=== PATIENT | female | born 1960 | race Caucasian/White ===

== ENCOUNTER 2017-02-08 17:05 | Outpatient (CLI) | payer OTHER ==
--- NOTE | 2017-02-09 09:34 | Ultrasound Report ---
RENAL ULTRASOUND: 02/08/2017 CLINICAL INDICATION: Right renal lesion. COMPARISON: CT of 05/13/2015, ultrasound of 05/06/2010. TECHNIQUE: Real-time sonographic vascular imaging was performed by the facility operations manager through the kidney s utilizing both color-flow and Doppler spectral analysis. Multiple union representative static images wer e saved for review. FINDINGS: The right kidney measures 10.6 x 3.9 x 3.8 cm. A 2.1 cm simple cyst is present. The exophy tic mass arising from the lower pole of the right kidney has increased in size from previous CT, now measuring 2.8 x 2.6 x 2.1 cm. No hydronephrosis is present. The left kidney measures 9.7 x 5.1 x 5.0 cm, and appears unremarkable. Incidental note is made of splenomegaly. Prevoid, the bladder measures 9.0 x 6.1 x 5.7 cm. No focal bladder lesion is seen. No significant pos tvoid residual. IMPRESSION: INTERVAL INCREASE IN SIZE OF SOLID EXOPHYTIC LESION ARISING FROM THE LOWER POLE OF THE R IGHT KIDNEY, SUSPICIOUS FOR NEOPLASM. JOB #: [id number] EXT JOB #:[id number]
== END 2017-02-08 17:06 | disposition home or self-care (01) ==
LOC: DI 17:05
PROVIDERS: ATTEND Urology
DX: N28.9 Disorder of kidney and ureter, unspecified (principal)
CPT/HCPCS: 76770

== ENCOUNTER 2017-03-28 11:27 | Outpatient (CLI) | payer OTHER | END 2017-03-28 11:28 | disposition home or self-care (01) | LOC: LAB.F 11:27 | PROVIDERS: ATTEND Physician Assistant Medical | DX: Z51.81 Encounter for therapeutic drug level monitoring (principal) | CPT/HCPCS: 36415; 80053; 85025 ==

== ENCOUNTER 2017-06-02 08:00 | Outpatient (CLI) | payer OTHER ==
--- NOTE | 2017-06-03 13:52 | CONSULTATION NOTE ---
Palliative Care Consultation - Referral Referring Provider: Nicki López. PCP is Alayna Malik PA-C Time of Visit: 06/02/2017 8:00 Referral setting: Home (Seen in home setting due to taxing and considerable effort required to leave the home due to fatigue from significant R side hemiparesis s/p distant CVA.) - Information Sources Records reviewed: RN notes reviewed, Previous records reviewed History/Review of Systems obtained from: Patient, Family Exam limitations: Clinical condition (Significant expressive aphasia s/p CVA in 1999) - History of Present Illness Brief History of Present Illness: Thank you, Nicki López, for asking the palliative care consult service to be involved in the care of your patient. I am asked to provide support for symptom management and goals of care in the context of advancing polycythemia vera and myelofibrosis. This is a daniel 56-year-old woman with a known history of polycythemia vera and myelofibrosis on Jakafi. She also has R side hemiparesis and significant expressive aphasia secondary to a CVA in 1999. She had a nephrectomy in March 2017 for a benign kidney mass, and she was off Jakafi for about a month during the surgery. She and her had a recent consultation with Dr Love at [facility] for a second opinion. He reviewed options, including a clinical trial of pacritinib, or alternatively treatment with a form of interferon. She is not a candidate for bone marrow transplant. Her reported that Dr Love said her prognosis is about 40 months. At her previous consultation at the [facility] with Nicki López NP, she stated she was not interested in participating in the clinical trial and wanted to stop treatment. Today she did reiterate that she is not interested in participating in the trial or interferon chemotherapy. Her issues currently are pain and nausea and vomiting, associated with progressive enlargement of the spleen. She does report that ondansetron helps with the N/V. She currently takes it in the morning and at dinner time. She can wake up in the night with dry heaving. She can eat dinner as late as 9 or 10pm, but her reports that it is usually 2-3 hours after meals that she goes to bed. She often stays up very late. We did discuss experimenting having a small snack at least 20-30 minutes before bed, to see if that helps. She is not able to describe whether anything triggers or alleviates the vomiting, such as eating, or not eating. Likewise for the pain secondary to the splenomegaly, she does not know if anything triggers or alleviates it. She currently does not take any medications for the pain, and declined having any additional pain medications for now. To relieve the pain she adjusts her position. She denies bone pain. She denies weight loss. She also has increasing night sweats, realizes this is sequelae of myelofibrosis. She currently receives blood transfusions, and they have increased in frequency and recently shes had them every two weeks: 05/27/17, , 04/28/17, 04/01/17. Information obtained from patient, nursing staff, and prior EMR chart notes. Medical/Surgical History - Past Medical History Neuro: reports: CVA (occurred in 1999), Other (expressive aphasia s/p CVA) Musculoskeletal: reports: Hemiplegia (R side hemiparesis, contractures on RUE, s /p CVA) Derm: reports: Herpes zoster (a few years ago) Other Past Medical History: polycythemia rubra vera; myelofibrosis - Past Surgical History General: reports: Other (nephrectomy for benign tumor, Mar 2017) - Substance History Use: Uses substance without health or social issues: NONE Medications/Allergies - Medications Home Medications: Ambulatory Orders Medication Instructions Recorded Confirmed Calcium [Calcio Jaclyn] 500 mg PO DAILY 11/20/12 06/03/17 Cholecalciferol (Vitamin D3) 5,000 unit PO DAILY 11/20/12 06/03/17 [Vitamin D] Lamotrigine 200 mg PO BID 11/20/12 06/03/17 Multivitamin [Multi-Vitamin Daily] 2 each PO DAILY 11/20/12 06/03/17 Ondansetron [Zofran] 4 mg PO Q6H PRN 11/20/12 06/03/17 Simvastatin [Zocor] 5 mg PO DAILY 11/20/12 06/03/17 oxyCODONE [Roxicodone] 5 mg PO Q4-6H PRN 11/20/12 06/03/17 Ruxolitinib Phosphate [Jakafi] 7.5 mg PO BID 04/27/17 06/03/17 raNITIdine HCl [Ranitidine HCl] 150 mg PO BID #60 capsule 05/25/17 06/03/17 - Allergies Allergies/Adverse Reactions: Allergies Allergy/AdvReac Type Severity Reaction Status Date / Time No Known Drug Allergies Allergy Verified 11/20/12 10:25 Review of Systems - Constitutional Constitutional: reports: Fatigue, Night sweats (secondary to myelofibrosis), Weight stable (at baseline, around 150 lbs) - Cardiovascular Cardiovascular: denies: Chest pain, Edema - Respiratory Respiratory: reports: Other (given oxygen after hospitalization for nephrectomy ; continues to use it at night, 2 liters/hr) - Gastrointestinal Gastrointestinal: reports: Abdominal pain (Left side pain secondary to splenomegaly), Constipation, Nausea, Vomiting, Good appetite - Genitourinary Genitourinary: reports: Frequency. denies: Dysuria, Incontinence - Musculoskeletal Musculoskeletal: reports: Limited range of motion (on right side), Assistive devices (has a 4-footed cane, does not use it much at home) - Neurological Neurological: reports: Abnormal gait (R side hemiparesis), Slurred speech ( significant expressive aphasia) - Hematologic/Lymphatic Hematologic/Lymphatic: reports: Anemia, Other (polycythemia rubra vera; myelofibrosis, dx'd around 1999) Physical Exam - Vital Signs Temperature: 98.2 F Pulse Rate: 77 O2 Saturation: 97 Blood Pressure: 118/68 - Physical Exam General Appearance: positive: No acute distress, Alert Eyes Bilateral: positive: EOMI, No lid inflammation, Conjunctivae nml, No scleral icterus ENT: positive: No signs of dehydration Neck: positive: Thyroid nml, No JVD, Trachea midline Cardiovascular: positive: Regular rate & rhythm, No murmur, No gallop Respiratory: positive: Chest non-tender, No respiratory distress Abdomen: positive: Tenderness (left side/upper L side), Distended (splenomegaly) Skin: positive: Bruising Extremities: positive: No pedal edema Neurologic/Psychiatric: positive: Oriented x3, Sensation nml, Mood/affect nml, Slurred/abnml speech. negative: Motor nml Palliative Care - POLST Patient has POLST: No Pain: Location (abdomen, L side), Pattern (no discernible patter) Tiredness/Fatigue: Moderate (4-6) Drowsiness/Sedation: None Nausea: Moderate (4-6) Depression: Mild (1-3) Anxiety: Mild (1-3) Dyspnea: Mild (1-3) (uses oxygen at night, since the nephrectomy in March) Anorexia: None, Mild (1-3) Sleep: Variable sleep pattern Constipation: Yes, Managed Feelings of wellbeing/Perceived Quality of Life: Poor Performance Status: Current level of functioning: Ambulates without assistive devices around the house, but also uses a 4-legged cane outside. Virtually housebound shopping and trips cause extreme fatigue, also she worries about needing to use the bathroom. Able to perform her own ADLs, has occasional assistance with showers. Unable to do much housework or activities that require exertion. Palliative Care Performance Status: 60% - Palliative Care Discussion: Who is present: Patient, spouse Denys, myself. Surrogate decision maker: Denys Fitzgerald, home [phone]. Information preferences: Patient has significant expressive aphasia so communication is difficult. She does not speak on the phone, so appointments and any arrangements are done by her . Both the patient and her spouse have insight and understanding into her disease. She was diagnosed around the time she had her cardiovascular event, about 17 years ago. So they have been living with her serious health issues ( cancer, R side hemiparesis, significant experessive aphasia) for half of their life (theyve been 34 years). They have 5 children, and she home-schooled them. They are all adults now, the youngest of their five children is now 23 years old, but was about 5 years old at the time of her stroke and cancer diagnosis, so the had to assume more and more responsibility over the years: the sole breadwinner, managing the house and the shopping, and dealing with everything having to do with his wifes serious illness: doctors, specialists, scheduling, appointments, transfusions. Then last year he had a serious health issue of his own: a pulmonary embolism caused him to go into atrial fibrillation and he ended up having three cardioversions ( one emergent, two scheduled). He acknowledges it hasn't been easy, and that he could use some support in the care of his , and around the house and property. The patient has family (mother, brother, a niece and her family) at [place], but who have not been and are not currently very involved in her care or present very often. Of their 5 adult children, one is in the [place] area. Their youngest son is at the house currently, but normally is at school in [facility]. We discussed what is most concerning to the patient. Verbal communication is quite difficult for her, but she said that therapy between her and her was what concerned her most. Her interpreted this not as getting counseling/marriage therapy, but rather that they need to take more time to talk to each other. He realizes they dont talk as much as they should, for those reasons listed above: lack of time because of work, managing the house and the acreage, his and his wifes serious health issues. We also discussed having her think about her goals and priorities in the context of what they have learned from Dr Dos Santos of [facility] about her prognosis (40 months). I provided education on advanced planning, and left the 5 Wishes booklet with them, Hard Choices for [place] [employer], and the POLST form, which they have not seen before. They will think and talk about it, and we agreed to continue the discussion at my follow up visit. The patients is interested in getting help and information about care giving support, and would appreciate a consultation with the palliative care long term care social worker. He would also appreciate on-going palliative care oversight. Impression and Recommendations - Palliative Care Impression: This is a daniel 56-year-old woman with a known history of polycythemia vera and myelofibrosis on Jakafi, with increasing symptom burden of abdominal pain secondary to splenomegaly, nausea and vomiting, night sweats. She also has longstanding R side hemiparesis and significant expressive aphasia secondary to a CVA in 1999. Her is her main social and caregiver support while he works aircraft time clerk, and is at risk of acute care surgeon burnout. She and her would benefit from palliative care support and assistance around symptom management, social resources and support, advanced care planning, and clarifying goals of care in the context of a diagnosis of a terminal illness, and eventual transition to Hospice. Recommendations/Counseling Done: Nausea/vomiting: Some relief with ondansetron, and is also on ranitidine for acid suppression. Consider adding anticholinergic, or corticosteroid if no relief. Can also consider and discuss with patient and spouse cannabinoids as an alternative Abdominal pain: Patient currently controls it with repositioning, does not want to use pain medications. She has oxycodone available. Monitor for increase. Constipation: Advised her to stop docusate, use Miralax (or the [employer] equivalent) daily vs sporadically, titrating as needed (1/4 1 capful), and add Senna 8.6mg 1 tab PO daily. Getting this under control can help alleviate the N/ V too. Night sweats (hyperhidrosis): Wear loose cotton clothing, cotton bed linens, maintain adequate hydration. If it becomes really bothersome, consider trialing gabapentin, or NSAIDs (eg, naproxen). Check with oncologist first, if it increases risk of thrombotic event in polycythemia patients. Advanced care planning: No POLST. Provided education and a copy of POLST for patient and her to discuss, provided 5 wishes, and Hard Choices for [place] [employer]. Agreed to revisit at follow up appointment. Referred to Palliative Care long term care social worker to follow up regarding social welfare research worker resources and support, particularly around care giving and other support. Spouse requested that I call first week of June to set up next visit. Time Spent: 90 minutes were spent with more than 50% of the time spent on counseling, education, and coordination of care regarding symptom management of myelofibrosis and goals of care, weighing benefits and burdens of interventions. Provided anticipatory guidance.
== END 2017-06-02 08:01 | disposition home or self-care (01) ==
LOC: PC 08:00
PROVIDERS: ATTEND Nurse Practitioner
DX: Z51.5 Encounter for palliative care (principal); R11.2 Nausea with vomiting, unspecified; K59.00 Constipation, unspecified; D45 Polycythemia vera; D75.81 Myelofibrosis; I69.320 Aphasia following cerebral infarction; I69.351 Hemiplegia and hemiparesis following cerebral infarction affecting right dominant side; Z90.5 Acquired absence of kidney; Z86.018 Personal history of other benign neoplasm; Z79.899 Other long term (current) drug therapy
CPT/HCPCS: 99345

== ENCOUNTER 2017-06-06 07:57 | Outpatient (CLI) | payer OTHER ==
[2017-06-06 11:55] LABS: BASOPHILS % (AUTO) 0.6 %; EOSINOPHILS % (AUTO) 0.5 %; HGB - HEMOGLOBIN 8.6 g/dL (12.0-16.0); LYMPHOCYTES % (AUTO) 17.4 %; MEAN CORPUSCULAR HEMOGLOBIN 27.9 pg (27.0-31.0); MEAN CORPUSCULAR HGB CONC 31.7 g/dL (32.0-36.0); MEAN PLATELET VOLUME 10.7 fL (7.9-10.8); MONOCYTES % (AUTO) 24.1 %; NEUTROPHILS % (AUTO) 57.4 %; RED BLOOD COUNT 3.07 10^6/uL (4.20-5.40); RED CELL DISTRIBUTION WIDTH 21.8 % (12.0-15.0); UNCORRECTED WHITE BLOOD COUNT 11.3 x10^3/uL; WHITE BLOOD COUNT 11.3 x10^3/uL (4.8-10.8)
[2017-06-06 12:14] LABS: ALBUMIN/GLOBULIN RATIO 1.9 (1.0-2.2); BILIRUBIN,TOTAL 0.6 mg/dL (0.2-1.0); CALCIUM 8.7 mg/dL (8.5-10.3); CREATININE 1.5 mg/dL (0.4-1.0); POTASSIUM 4.5 mmol/L (3.5-5.0)
[2017-06-06 12:21] LABS: BAND NEUTROPHILS % (MANUAL) 9 %; BASOPHILS % (MANUAL) 4 %; LYMPHOCYTES % (MANUAL) 26 %; NEUTROPHILS % (MANUAL) 36 %; TOTAL CELLS COUNTED 100
[2017-06-06 12:22] LABS: NP AUTO DIFFERENTIAL? YES; NP MAN DIFFERENTIAL? NO; PLATELET MORPHOLOGY RARE GIANT PLATELETS (NORMAL)
== END 2017-06-06 07:58 | disposition home or self-care (01) ==
LOC: LAB.F 07:57
PROVIDERS: ATTEND Physician Assistant Medical
DX: Z51.81 Encounter for therapeutic drug level monitoring (principal); D64.9 Anemia, unspecified
CPT/HCPCS: 36415; 80053; 85025

== ENCOUNTER 2017-06-29 16:07 | Outpatient (CLI) | payer OTHER ==
--- NOTE | 2017-06-29 21:38 | CONSULTATION NOTE ---
Palliative Care Follow Up - Referral Referring Provider: Nicki López Time of Visit: 06/29/2017 18:15 - 19:15 Referral setting: Home (Seen in home setting due to taxing and considerable effort required to leave the home due to fatigue from significant R side hemiparesis s/p distant CVA) - Information Sources Records reviewed: Previous records reviewed History/Review of Systems obtained from: Patient, Friend Exam limitations: Clinical condition (significant expressive aphasia s/p CVA in 1999) - History of Present Illness Update Brief HPI Update: This is a daniel 57-year-old woman with polycythemia vera and myelofibrosis, with a limited life expectancy of 30-40 months, per prognosis by Dr Love at [facility]. She also has R side hemiparesis and significant expressive aphasia secondary to a CVA in 1999. She had a nephrectomy in Mar 2017 for a benign kidney mass. She is receiving regular blood transfusions: 06/23/17, 06/06/17, 05/27/17, , 04/28/17, 04/01/17, and is currently off Jakafi for one month. Her follow up appointment is at the end of June. She reiterated at today's visit she is not interested in further chemotherapy and does not want to participate in any clinical trials. She also is not a candidate for bone marrow transplant. Her is having serious cardiac issues of his own, he just went to the hospital yesterday for a-fib. He continues to work full-time at the [employer] and feels overwhelmed with too much on his plate. He asked a close family friend, Gita, to attend the visit (he was not there until the end) to facilitate advanced care directive discussion with the patient. Gita is a long-time friend and understands the patient's verbal patterns. Communication is very difficult for the patient due to residual effects of the CVA and significant aphasia. The patient was able to comprehend and eventually verbalize her wishes, which are outlined in the Palliative Care Discussion section. She again mentioned her chronic nausea and vomiting, which started 17 years ago after the CVA. It comes and goes. She keeps a bucket nearby, since she never knows when nausea/vomiting will occur. Splenomegaly increases it, and she uses ondansetron for alleviation of symptoms. She has used numerous antiemetic medications over the years. Social History - Living Situation Living arrangement: At home Living Situation: With spouse/s.o. Support System: Her is very supportive, but is under tremendous stress, with the responsibilities of running the household, working, and his medical problems. The patient is mainly housebound, and is well supported by Gita. They do go out for coffee, and Gita has learned how to speak to her in simple sentence so she is not overwhelmed. They have 5 children whom she home-schooled. The youngest is 23 year old. One is in [place], one in [place]. She used to be very active in mormonism. She remains at home most of the time, with occasional outings with Denys and Gita. Her family lives at [place], it is a complicated family dynamic. As reported by Denys and Gita they are not much involved in her care. Medications/Allergies - Medications Home Medications: Ambulatory Orders Medication Instructions Recorded Confirmed Calcium [Calcio Babcock] 500 mg PO DAILY 11/20/12 06/22/17 Cholecalciferol (Vitamin D3) 5,000 unit PO DAILY 11/20/12 06/22/17 [Vitamin D] Lamotrigine 200 mg PO BID 11/20/12 06/22/17 Multivitamin [Multi-Vitamin Daily] 2 each PO DAILY 11/20/12 06/22/17 Ondansetron [Zofran] 4 mg PO Q6H PRN 11/20/12 06/22/17 Simvastatin [Zocor] 5 mg PO DAILY 11/20/12 06/22/17 oxyCODONE [Roxicodone] 5 mg PO Q4-6H PRN 11/20/12 06/22/17 raNITIdine HCl [Ranitidine HCl] 150 mg PO BID #60 capsule 05/25/17 06/22/17 Rivaroxaban [Xarelto] 15 mg PO DAILY 07/02/17 07/02/17 - Allergies Allergies/Adverse Reactions: Allergies Allergy/AdvReac Type Severity Reaction Status Date / Time No Known Drug Allergies Allergy Verified 11/20/12 10:25 Review of Systems - Constitutional Constitutional: reports: Night sweats (chronic, for years.), Weight stable ( baseline weight is 150 lbs) - Cardiovascular Cardiovascular: denies: Palpitations, Chest pain - Respiratory Respiratory: denies: Cough, SOB at rest - Neurological Neurological: reports: Abnormal gait (R side hemiparesis), Slurred speech ( significant expressive aphasia) Physical Exam - Vital Signs Temperature: 98.2 F Pulse Rate: 77 O2 Saturation: 97 Blood Pressure: 118/68 - Physical Exam General Appearance: positive: No acute distress, Alert Eyes Bilateral: positive: EOMI, No lid inflammation, Conjunctivae nml, No scleral icterus ENT: positive: No signs of dehydration Neck: positive: Thyroid nml, No JVD, Trachea midline Cardiovascular: positive: Regular rate & rhythm, No murmur, No gallop Respiratory: positive: Chest non-tender Extremities: positive: No pedal edema Neurologic/Psychiatric: positive: Sensation nml, Mood/affect nml, Weakness, Slurred/abnml speech Palliative Care - POLST Patient has POLST: Yes POLST Status: DNR, Selective Treatment Nausea: Mild (1-3) - Palliative Care Discussion: Today we discussed the what is important to the patient and what her wishes are for end of life. She wants "peace." She wants to be at home and be with the people she cares about at end of life. She does not want to in a hospital. She is concerned about Denys's heart health, but she says they are "survivors." We completed the POLST to reflect her wishes and priorities. We also discussed the durable power of assistant district attorney and I provided education and explanation. There is some concern that the patient's family, particularly the siblings, might object to the patient's wishes, and Gita was encouraging her to get this taken care of. She did not sign the forms, but took a copy. Denys came home and it was also explained to him, and they will take some time to think about it and get it taken care of . I also left the 5 Wishes booklet again , reiterating that it is a useful and easy-to-use guide. We agreed that I would call them in 3-4 weeks to follow up. Impression and Recommendations - Palliative Care Impression: This is a daniel 57-year-old woman with a known history of polycythemia vera and myelofibrosis, currently off Jakafi for one month. She has a prognosis of 30 -40 months' life expectancy. She has additional challenges around her 's cardiac health problems. She and the family would benefit from help and support around advanced care planning, and continued palliative care support around her symptom management, social resources and support, and clarifying goals of care in the context of a diagnosis of terminal illness, with eventual transition to Hospice. Recommendations/Counseling Done: Advanced care planning: Long discussion and explanation of goals of care, POLST , and durable power of assistant district attorney. POLST was written to reflect her wishes and goals, signed and placed on refrigerator. Left DPOA paperwork for patient and to further discuss on their own, and left another 5 Wishes pamphlet. We agreed that I will call in 3-4 weeks. Time Spent: 60 minutes were spent with more than 50% of the time spent on counseling, education, and coordination of care around advanced care planning.
== END 2017-06-29 16:08 | disposition home or self-care (01) ==
LOC: PC 16:07
PROVIDERS: ATTEND Nurse Practitioner
DX: Z51.5 Encounter for palliative care (principal); I69.351 Hemiplegia and hemiparesis following cerebral infarction affecting right dominant side; I69.320 Aphasia following cerebral infarction; D45 Polycythemia vera; D75.81 Myelofibrosis; Z90.5 Acquired absence of kidney; R11.2 Nausea with vomiting, unspecified; Z79.01 Long term (current) use of anticoagulants; Z66 Do not resuscitate
CPT/HCPCS: 99350

== ENCOUNTER 2017-07-12 06:12 | Inpatient (IN) | payer OTHER ==
[2017-07-12] MEDS ORDERED: ONDANSETRON 4 MG/2 ML VIAL IVP STA ×2 (06:29→06:36)
[2017-07-12] MEDS ORDERED: SODIUM CHLORIDE 0.9% 1,000 ML IV ONE ×2 (06:29→08:42)
[2017-07-12] MEDS ORDERED: PANTOPRAZOLE 40 MG VIAL IVP STA (06:37)
[2017-07-12 07:01] LABS: BASOPHILS % (AUTO) 0.6 %; EOSINOPHILS % (AUTO) 0.2 %; HGB - HEMOGLOBIN 7.5 g/dL (12.0-16.0); LYMPHOCYTES % (AUTO) 8.5 %; MEAN CORPUSCULAR HEMOGLOBIN 26.4 pg (27.0-31.0); MEAN CORPUSCULAR HGB CONC 30.9 g/dL (32.0-36.0); MEAN CORPUSCULAR VOLUME 85.4 fL (81.0-99.0); MEAN PLATELET VOLUME 11.6 fL (7.9-10.8); MONOCYTES % (AUTO) 20.7 %; PLT - PLATELET COUNT 82 10^3/uL (130-450); RED BLOOD COUNT 2.84 10^6/uL (4.20-5.40); RED CELL DISTRIBUTION WIDTH 19.7 % (12.0-15.0); WHITE BLOOD COUNT 17.7 x10^3/uL (4.8-10.8)
[2017-07-12 07:12] LABS: ALBUMIN 2.9 g/dL (3.2-5.5); ALBUMIN/GLOBULIN RATIO 1.3 (1.0-2.2); BILIRUBIN,TOTAL 1.1 mg/dL (0.2-1.0); CREATININE 2.3 mg/dL (0.4-1.0); MAGNESIUM 1.8 mg/dL (1.7-2.8); PHOSPHORUS 6.2 mg/dL (2.5-4.6); TOTAL PROTEIN 5.2 g/dL (6.7-8.2)
[2017-07-12 07:20] LABS: ABNORMAL LYMPHS % (MANUAL) 0 %
[2017-07-12 07:25] LABS: BAND NEUTROPHILS % (MANUAL) 1 %; LYMPHOCYTES # (MANUAL) 2.5 10^3/uL (1.5-3.5); LYMPHOCYTES % (MANUAL) 10 %; MONOCYTES # (MANUAL) 1.9 10^3/uL (0.0-1.0); MYELOCYTES % (MANUAL) 1 %; NEUTROPHILS # (MANUAL) 11.7 10^3/uL (1.5-6.6); NEUTROPHILS % (MANUAL) 65 %
[2017-07-12 07:27] LABS: PLATELET MORPHOLOGY RARE GIANT (NORMAL)
--- NOTE | 2017-07-12 07:34 | XRAY Report ---
EXAM: CHEST RADIOGRAPHY ONE VIEW EXAM DATE: 07/12/2017. CLINICAL HISTORY: Fever. COMPARISON: 06/17/2016. TECHNIQUE: AP upright portable chest at 0701. FINDINGS: Lungs/Pleura: The lungs are hypoinflated but appear clear. The pulmonary vasculature is normal. No pl eural fluid or pneumothorax. Mediastinum: Normal cardiac and mediastinal contours. Bones: Normal. Other: Surgical clips and partially visualized inferior vena cava umbrella in the abdomen. IMPRESSION: Allowing for hypoventilation, no radiographic cardiopulmonary abnormality. [facility] Referring Provider Line: [phone] SITE ID: [id number]
--- NOTE | 2017-07-12 07:43 | ED Physician Documentation ---
PD HPI NVD - Stated complaint Stated Complaint: VOMITING/FEVER - Chief complaint Chief Complaint: Abd Pain - History obtained from History obtained from: Patient, Family - History of Present Illness Timing - onset: Last night Timing - duration: Days (1) Timing - details: Gradual onset, Still present Associated symptoms: Fever, Hematemesis, Loss of appetite Improved by: Laying still Similar symptoms before: Has not had sx before Recently seen: Clinic - Additonal information Additional information: 57-year-old female near the end of life issues for her myeloproliferative disorder is transfusion dependent and has developed a fever over the last day. She has vomited as well and in the vomitus she had some blood. She is on Xarelto.She was in her usual state of health which is to have continuous nausea and sporadic vomiting as well as weakness and aphasia. She began to not feel well last night with fever and chills Review of Systems Constitutional: reports: Fever, Chills, Myalgias, Fatigue Eyes: denies: Decreased vision Ears: denies: Ear pain Nose: denies: Rhinorrhea / runny nose, Congestion Throat: denies: Sore throat Cardiac: denies: Chest pain / pressure, Palpitations Respiratory: denies: Dyspnea, Cough GI: reports: Nausea, Vomiting. denies: Abdominal Pain : denies: Dysuria, Frequency Skin: denies: Rash Musculoskeletal: denies: Neck pain, Back pain Neurologic: reports: Generalized weakness. 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 HEENT: Tonsil/Adenoidectomy - Present Medications Home Medications: Ambulatory Orders Medication Instructions Recorded Confirmed Calcium [Calcio Jaclyn] 500 mg PO DAILY 11/20/12 06/22/17 Cholecalciferol (Vitamin D3) 5,000 unit PO DAILY 11/20/12 06/22/17 [Vitamin D] Lamotrigine 200 mg PO BID 11/20/12 06/22/17 Multivitamin [Multi-Vitamin Daily] 2 each PO DAILY 11/20/12 06/22/17 Ondansetron [Zofran] 4 mg PO Q6H PRN 11/20/12 06/22/17 Simvastatin [Zocor] 5 mg PO DAILY 11/20/12 06/22/17 oxyCODONE [Roxicodone] 5 mg PO Q4-6H PRN 11/20/12 06/22/17 raNITIdine HCl [Ranitidine HCl] 150 mg PO BID #60 capsule 05/25/17 06/22/17 Rivaroxaban [Xarelto] 15 mg PO DAILY 07/02/17 07/02/17 - Allergies Allergies/Adverse Reactions: Allergies Allergy/AdvReac Type Severity Reaction Status Date / Time No Known Drug Allergies Allergy Verified 07/12/17 06:28 - Social History Does the pt smoke?: No Smoking Status: Never smoker Does the pt drink ETOH?: No Does the pt have substance abuse?: No - Immunizations Immunizations are current?: Yes - POLST Patient has POLST: Yes PD ED PE NORMAL - Vitals Vital signs reviewed: Yes (Febrile tachycardic with diastolic hypertension) - General General: Well developed/nourished, Other (57-year-old female with a vacant stare and parched lips with some dried blood on her lips does answer questions appropriately.) - HEENT HEENT: Atraumatic, PERRL, EOMI, Ears normal, Other (Dry mucous membranes) - Neck Neck: Supple, no meningeal sign, No bony TTP - Cardiac Cardiac: No murmur, Other (Tachycardic to 100) - Respiratory Respiratory: No respiratory distress, Clear bilaterally, Other (Diminished breath sounds) - Abdomen Abdomen: Soft, Non tender, Other (There is marked organomegaly with the spleen palpable across the midline and to the umbilicus) - Back Back: No CVA TTP, No spinal TTP - Derm Derm: Normal color, Warm and dry, No rash - Extremities Extremities: No deformity, No edema - Neuro Neuro: No motor deficit, No sensory deficit Eye Opening: Spontaneous Motor: Obeys Commands Verbal: Oriented GCS Score: 15 - Psych Psych: Normal mood, Normal affect Results - Vitals Vitals: Vital Signs - 24 hr 07/12/17 07/12/17 06:22 07:06 Temperature 37.9 C H Heart Rate 122 H 107 H Respiratory 18 Rate Blood Pressure 105/89 H 101/54 L O2 Saturation 93 98 Oxygen O2 Source Nasal cannula Oxygen Flow Rate 2 - EKG (time done) 0636 Rate: Rate (enter#) (112) Rhythm: Sinus tachycardia Intervals: Prolonged QT Compare to prior EKG: Old EKG unavailable Computer interpretation: Agree with computer - Labs Labs: Laboratory Tests 07/12/17 07/12/17 07/12/17 00:38 00:38 00:59 WBC 17.7 H RBC 2.84 L Hgb 7.5 L Hct 24.2 L MCV 85.4 MCH 26.4 L MCHC 30.9 L RDW 19.7 H Plt Count 82 L MPV 11.6 H Neut # [employer] Lymph # [employer] [place] # [employer] Eos # [employer] Baso # [employer] Absolute Nucleated RBC [employer] Total Counted 100 Band Neuts % (Manual) 1 Reactive Lymphs % (Man) 4 Abnorm Lymph % (Manual) 0 Myelocytes % 1 H Blast Cells % 8 H* Nucleated RBC % [employer] Neutrophils # (Manual) 11.7 H Lymphocytes # (Manual) 2.5 Monocytes # (Manual) 1.9 H Eosinophils # (Manual) 0.0 Basophils # (Manual) 0.0 Nucleated RBCs 4 Differential Comment MANUAL DIFFERENTIAL Manual Slide Review Indicated Platelet Morphology RARE GIANT RBC Morph Micro Appear 1+ POLYCHROMASIA Sodium 134 L Potassium 4.6 Chloride 99 L Carbon Dioxide 20 L Anion Gap 15.0 H BUN 37 H Creatinine 2.3 H Estimated GFR (MDRD) 22 L Glucose 155 H Lactic Acid 0.8 Calcium 8.0 L Phosphorus 6.2 H Magnesium 1.8 Total Bilirubin 1.1 H AST 42 ALT 23 Alkaline Phosphatase 63 Total Protein 5.2 L Albumin 2.9 L Globulin 2.3 Albumin/Globulin Ratio 1.3 Lipase 15 L Urine Color Urine Clarity Urine pH Ur Specific Gail Urine Protein Urine Glucose (UA) Urine Ketones Urine Occult Blood Urine Nitrite Urine Bilirubin Urine Urobilinogen Ur Leukocyte Esterase Urine RBC Urine WBC Ur Squamous Epith Cells Urine Bacteria Urine Casts Ur Microscopic Review Urine Culture Comments Influenza A (Rapid) Influenza B (Rapid) Influenza Types A,B Ag Blood Type Antibody Screen 07/12/17 07/12/17 07/12/17 00:59 06:56 09:15 WBC RBC Hgb Hct MCV MCH MCHC RDW Plt Count MPV Neut # Lymph # [place] # Eos # Baso # Absolute Nucleated RBC Total Counted Band Neuts % (Manual) Reactive Lymphs % (Man) Abnorm Lymph % (Manual) Myelocytes % Blast Cells % Nucleated RBC % Neutrophils # (Manual) Lymphocytes # (Manual) Monocytes # (Manual) Eosinophils # (Manual) Basophils # (Manual) Nucleated RBCs Differential Comment Manual Slide Review Platelet Morphology RBC Morph Micro Appear Sodium Potassium Chloride Carbon Dioxide Anion Gap BUN Creatinine Estimated GFR (MDRD) Glucose Lactic Acid Calcium Phosphorus Magnesium Total Bilirubin AST ALT Alkaline Phosphatase Total Protein Albumin Globulin Albumin/Globulin Ratio Lipase Urine Color DARK YELLOW Urine Clarity CLOUDY Urine pH 6.0 Ur Specific Gail 1.020 Urine Protein 100 H Urine Glucose (UA) NEGATIVE Urine Ketones NEGATIVE Urine Occult Blood LARGE H Urine Nitrite POSITIVE H Urine Bilirubin NEGATIVE Urine Urobilinogen 0.2 (NORMAL) Ur Leukocyte Esterase MODERATE H Urine RBC 6-10 H Urine WBC >25 H Ur Squamous Epith Cells FEW Squamous Urine Bacteria Many H Urine Casts 0-2 Course Granular Ur Microscopic Review INDICATED Urine Culture Comments INDICATED Influenza A (Rapid) Negative Influenza B (Rapid) Negative Influenza Types A,B Ag - Blood Type O POSITIVE Antibody Screen NEGATIVE - Rads (name of study) chest Radiology: Prelim report reviewed (Impression: Allowing for hypoventilation, no radiographic cardiopulmonary abnormality.), EMP read indepedently, See rad report Procedures - IVC sono (time) 0840 Bedside IVC sono: IVC measures (cm) (1.32), IVC collapsed c insp (cm) (0.61), Dehydration (mild after one liter) PD MEDICAL DECISION MAKING - ED course Complexity details: reviewed old records, reviewed results, re-evaluated patient , considered differential, d/w patient, d/w family ED course: 57-year-old female with advanced myeloproliferative disorder is developed fever and chills and has urinary tract infection. She has tachycardia and fever low central venous pressure and hypotension. She is resuscitated with intravenous fluid and will need admission to the hospital. Departure - Departure Disposition: [facility] DC/Xfer Clinical Impression: SIRS (systemic inflammatory response syndrome) Urinary tract infection Qualifiers: Urinary tract infection type: acute cystitis Hematuria presence: with hematuria Qualified Code(s): N30.01 - Acute cystitis with hematuria
[2017-07-12 07:44] LABS: DIFFERENTIAL COMMENT MANUAL DIFFERENTIAL
[2017-07-12 09:28] LABS: BILIRUBIN,URINE NEGATIVE (NEGATIVE); GLUCOSE, URINE (UA) NEGATIVE (NEGATIVE); KETONES,URINE (UA) NEGATIVE (NEGATIVE); LEUKOCYTE ESTERASE, URINE MODERATE (NEGATIVE); NITRITE,URINE POSITIVE (NEGATIVE); OCCULT BLOOD,URINE LARGE (NEGATIVE); PROTEIN,URINE 100 mg/dL (NEGATIVE); UROBILINOGEN,URINE 0.2 (NORMAL) E.U./dL (NORMAL)
[2017-07-12 09:30] LABS: CLARITY,URINE CLOUDY (CLEAR)
[2017-07-12 09:42] LABS: SQUAMOUS EPITHELIAL CELL,UR FEW Squamous (<= Few)
[2017-07-12 09:43] LABS: BACTERIA,URINE Many /HPF (None Seen); CASTS, URINE 0-2 Course Granular /LPF
[2017-07-12] MEDS ORDERED: SODIUM CHLORIDE FLUSH 0.9% 10 ML SYRINGE IVP PRN (11:22)
--- NOTE | 2017-07-12 11:56 | HISTORY & PHYSICAL EXAMINATION ---
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 She is well-known to the [facility] for frequent blood transfusions. She arrived to the ED with a primary complaint of abdominal pain, nausea, hematemesis, anorexia, fever, chills, weight loss and fatigue. She is suspected to have recently been prescribed Xarelto and was in her usual state of health up until about one week ago when she "felt very warm to the touch", so her put the portable pulse oximeter on her finger which displayed an oxygen saturation of 87% and heart rate readings in the 120' s. He also checked a temp and noted a fever of 102, and 104 axillary. He gave her tylenol, and by the next morning she was improved. Then on Tuesday (3 days ago), he again took her temp and it was 102 axillary and accompanied with fever , chills, and fatigue. This morning the patient had hematemesis and describes it as deep purple, rust colored and said it was small to moderate in size as it got on the bed, and on her chest. Both customer care professional, Gita and , Jesus were present for the admission interview and exam. We will plan to admit patient to inpatient for UTI and anemia and contact the [facility] clinic, keeping in mind DNR status and life expectancy. History - Past Medical History Cardiovascular: reports: Peripheral Vascular Disease, Deep vein thrombosis, Pulmonary embolism Neuro: reports: CVA, Other GI: reports: GERD, GI bleed (A one time episode of vomiting up dark, purple, rust colored blood. Small to moderate amount and none since.), Chronic constipation, Other : reports: Incontinence, Renal insuffiency (Status post right nephrectomy, 2016), Frequency Psych: reports: Other (daily Nausea with vomiting. 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 Living arrangement: At home Living Situation: With spouse/s.o. Social History Notes: Shannan has 5 children and the youngest is 23-years old and lives in [place]. She recently has a family friend, Gita who has been supportive and spending time at home during the day. Her daily routine consists of watching TV and performs her own ADLs. - Substance History Use: Uses substance without health or social issues: NONE Abuse: Recurrent use of substance despite neg consequences: NONE Dependence: Experiences withdrawal or developed tolerances: NONE - POLST Patient has POLST: Yes POLST Status: DNR (see summary tab for latest POLST form) Meds/Allgy - Home Medications Home Medications: Ambulatory Orders Medication Instructions Recorded Confirmed Cholecalciferol (Vitamin D3) 5,000 unit PO DAILY 11/20/12 07/12/17 [Vitamin D] Lamotrigine 200 mg PO BID 11/20/12 07/12/17 Multivitamin [Multi-Vitamin Daily] 2 each PO DAILY 11/20/12 07/12/17 Simvastatin [Zocor] 5 mg PO QPM 11/20/12 07/12/17 raNITIdine HCl [Ranitidine HCl] 150 mg PO BID #60 capsule 05/25/17 07/12/17 Rivaroxaban [Xarelto] 15 mg PO 1700 07/02/17 07/12/17 Dale-3 Acid Ethyl Esters [Lovaza] 1 gm PO DAILY 07/12/17 07/12/17 - Allergies Allergies/Adverse Reactions: Allergies Allergy/AdvReac Type Severity Reaction Status Date / Time No Known Drug Allergies Allergy Verified 07/12/17 06:28 Review of Systems - Constitutional Constitutional: reports: Fatigue, Fever, Chills, Weakness, Poor appetite, Weight loss - Eyes Eyes: reports: Corrective lenses - Ears, Nose & Throat Ears, Nose & Throat: reports: Nosebleeds - Cardiovascular Cariovascular: reports: Edema (chronic related to right sided weakness.), Syncope, Decr. exercise tolerance - Respiratory Respiratory: reports: SOB with exertion - Gastrointestinal Gastrointestinal: reports: Abdominal pain, Vomiting, Coffee grounds emesis (one episode, small amount, very dark red, not radha blood), Reflux/heartburn, Poor appetite - Genitourinary Genitourinary: reports: Dysuria, Frequency, Incontinence, Nocturia - Musculoskeletal Musculoskeletal: reports: Limited range of motion, Joint swelling - Integumentary Integumentary: reports: Dryness - Neurological Neurological: reports: General weakness, Memory problems, Pre-existing deficit, Seizures (history of seizures after CVA in 2000), Incoordination, Slurred speech - Hematologic/Lymphatic Hematologic/Lymphatic: reports: Anemia, Bruising, Recurrent infections - All Other Systems All Other Systems: reports: Reviewed and negative Exam - Vital Signs Reviewed Vital Signs: Yes - Physical Exam General Appearance: positive: No acute distress, Alert, Anxious, Lethargic Eyes Bilateral: positive: Normal inspection, PERRL ENT: positive: ENT inspection nml, Pharynx nml, No signs of dehydration, Dry mucous membranes Neck: positive: Nml inspection, Thyroid nml, No JVD, Trachea midline, Stiff neck Respiratory: positive: Chest non-tender, No respiratory distress, Other ( diminished.) Cardiovascular: positive: Regular rate & rhythm, No gallop, Systolic murmur, Decreased pulse(s) Peripheral Pulses: positive: 1+ Abdomen: positive: Guarding, Rebound, Hepatomegaly, Splenomegaly, Abnml bowel sounds Back: positive: Nml inspection Skin: positive: No rash, Warm, Dry, Pallor, Other (Chronic right lower extremity wound located on anterior carlos. [facility] Extremities: positive: Pedal edema (right more than left,) Neurologic/Psychiatric: positive: Disoriented to place, Disoriented to time, Weakness, Sensory loss, Facial droop (baseline), Slurred/abnml speech, Depressed mood/affect Reflexes: Bicep (R): 0, Bicep (L): 2+ Conclusion/Plan - Problem List (1) Cerebrovascular accident (CVA) with involvement of right side of body Conclusion/Plan: Patient had a CVA in 2000 that has left her with profound right side neglect. She is able to ambulate with walker. She also suffered an expressive aphasia and this has not improved since the time of insult. She can answer one word questions and say up to 3 words at a time. Patient's has left her at home alone for many years during the day for work, but has recently enlisted a family friend, Mina for help due to worsening condition, more frequent falls, and changes in mentation. Plan: Continue fall precautions with frequent nursing care. Order pure wick for urinary incontinence. Provide patient with familiar items to reduce confusion. and caregiver are supportive and involved. (2) Urinary tract infection Conclusion/Plan: Caregiver notes patient to have s/s of dysuria for the past few days prior to admission, and explains patient has needing to urinate several times in a row with very little results. She has also had fevers, increased weakness, fatigue , and mild confusion. Plan: Continue IV antibiotics and wait for culture results. Qualifiers: Urinary tract infection type: acute cystitis Hematuria presence: with hematuria Qualified Code(s): N30.01 - Acute cystitis with hematuria (3) Expressive aphasia Conclusion/Plan: As a result of her CVA in 2000, Shannan has expressive aphasia and this has not improved since the time of insult. She can answer one word questions and say up to 3 words at a time. She also has mild hearing loss and mild visual loss on the right. During the first part of the admission interview, patient was resting in bed quietly, but soon became more alert and agitated which was likely related to urinary urgency. A pure wick was offered and left in place to maintain comfort. Plan: Continuity of nursing care and possible speech evaluation if swallowing appears problematic. (4) History of nephrectomy, unilateral Conclusion/Plan: In late 2017, patient had a right nephrectomy and was hospitalized for 9 days at [facility] for a benign kidney tumor. Incision site is now healed. Plan: Monitor kidney function and avoid nephrotoxins. (5) Anemia Conclusion/Plan: Patient is affiliated with our [facility] clinic and sees Dr. Brown for blood transfusions about once per month. Patient has a history of polythycemia, which was the likely cause of her CVA in 2000. Spoke to our [facility] clinic, Nicki to alert her of this admission. Patient has recently had a Palliative care consult and a POLST form was completed which states no antibiotics/blood, etc., but I asked her , Jesus about this and he would like to allow us to transfuse and treat her with antibiotics since this is potentially treatable. Plan: Continue to monitor H/H and transfuse if needed. We will continue current plan, but care will still be focused on comfort. - Lab Results Lab results reviewed: Yes Fish Bones: 07/13/17 06:41 07/13/17 04:45 - Diagnostic Imaging Results Diagnostic Imaging Results: positive: Prelim report reviewed, Final report reviewed - EKG Results EKG Interpreted Independently: Yes Core Measures - Anticipated LOS I expect patient to be DC'd or transferred within 96 hours.: Yes - DVT/VTE - Prophylaxis VTE/DVT Device ordered at admit?: Yes VTE/DVT Prophylaxis med ordered at admit?: No Not Ordered - Medical Reason: Contraindicated - Stroke - Rehab Assessment Rehab services assessment to be ordered?: Yes - AMI - Statin at Admit Aspirin Prescribed on Admit: No Not Ordered - Medical Reason: Contraindicated
[2017-07-12] MEDS: SODIUM CHLORIDE FLUSH 0.9% 10 ML SYRINGE IVP SCH ×2 (14:35→23:07)
[2017-07-12] MEDS: SODIUM CHLORIDE 0.9% 1,000 ML IV SCH (14:35)
[2017-07-12] MEDS ORDERED: ACETAMINOPHEN 1,000 MG/100 ML 100 ML IV PRN (15:56)
[2017-07-12] MEDS ORDERED: ACETAMINOPHEN 325 MG TABLET PO SCH (16:21)
[2017-07-12] MEDS ORDERED: diphenhydrAMINE 25 MG CAPSULE PO SCH (16:22)
[2017-07-12] MEDS ORDERED: SODIUM CHLORIDE 0.9% 500 ML IV ONE (16:53)
[2017-07-12] MEDS ORDERED: PROMETHAZINE 25 MG SUPP PR PRN (16:53)
[2017-07-12] MEDS ORDERED: PROCHLORPERAZINE 10 MG/2 ML VIAL IVP PRN (16:54)
[2017-07-12] MEDS ORDERED: ONDANSETRON ODT 4 MG TABLET TL PRN (16:55)
[2017-07-12] MEDS ORDERED: cefTRIAXone 1 GM in SODIUM CHLORIDE 0.9% MINIBAG 100 ML IV SCH (17:00)
[2017-07-12 18:25] LABS: CALCIUM 7.3 mg/dL (8.5-10.3); CREATININE 2.5 mg/dL (0.4-1.0)
[2017-07-12] MEDS ORDERED: SODIUM CHLORIDE 0.9% 250 ML IV ONE (21:08)
[2017-07-12] MEDS: ACETAMINOPHEN 325 MG TABLET PO PRN (21:09)
[2017-07-13] MEDS: SODIUM CHLORIDE 0.9% 1,000 ML IV SCH ×2 (01:51→18:57)
[2017-07-13 05:14] LABS: ALBUMIN 2.4 g/dL (3.2-5.5); ALBUMIN/GLOBULIN RATIO 1.1 (1.0-2.2); BILIRUBIN,TOTAL 0.6 mg/dL (0.2-1.0); CALCIUM 6.7 mg/dL (8.5-10.3); CREATININE 2.2 mg/dL (0.4-1.0); MAGNESIUM 1.9 mg/dL (1.7-2.8); PHOSPHORUS 5.4 mg/dL (2.5-4.6); TOTAL PROTEIN 4.6 g/dL (6.7-8.2)
[2017-07-13 05:15] LABS: EOSINOPHILS % (AUTO) 0.1 %; INR 1.8 (0.8-1.2); LYMPHOCYTES % (AUTO) 29.8 %; MEAN CORPUSCULAR HEMOGLOBIN 27.2 pg (27.0-31.0); MEAN CORPUSCULAR HGB CONC 31.3 g/dL (32.0-36.0); MEAN CORPUSCULAR VOLUME 86.9 fL (81.0-99.0); MONOCYTES % (AUTO) 18.8 %; NEUTROPHILS % (AUTO) 50.3 %; PT - PROTHROMBIN TIME 19.8 secs (9.9-12.6); RED BLOOD COUNT 2.43 10^6/uL (4.20-5.40); RED CELL DISTRIBUTION WIDTH 19.2 % (12.0-15.0); WHITE BLOOD COUNT 7.6 x10^3/uL (4.8-10.8)
[2017-07-13 05:44] LABS: HGB - HEMOGLOBIN 6.6 g/dL (12.0-16.0)
[2017-07-13 05:50] LABS: ABNORMAL LYMPHS % (MANUAL) 3 %; BAND NEUTROPHILS % (MANUAL) 6 %; LYMPHOCYTES # (MANUAL) 2.4 10^3/uL (1.5-3.5); LYMPHOCYTES % (MANUAL) 23 %; METAMYELOCYTES % (MANUAL) 4 %; MONOCYTES # (MANUAL) 0.6 10^3/uL (0.0-1.0); NEUTROPHILS # (MANUAL) 4.3 10^3/uL (1.5-6.6); NEUTROPHILS % (MANUAL) 50 %
[2017-07-13 05:54] LABS: PLATELET ESTIMATE, MANUAL DECREASED (<130,000) (NORMAL); PLATELET MORPHOLOGY 1+ LARGE PLATELETS (NORMAL)
[2017-07-13 05:55] LABS: DIFFERENTIAL COMMENT MANUAL DIFFERENTIAL
[2017-07-13 05:56] LABS: MEAN PLATELET VOLUME 10.2 fL (7.9-10.8); PLT - PLATELET COUNT 49 10^3/uL (130-450)
[2017-07-13 06:54] LABS: HGB - HEMOGLOBIN 6.7 g/dL (12.0-16.0)
[2017-07-13] MEDS ORDERED: FERROUS SULFATE 325 MG TABLET PO SCH (09:00)
[2017-07-13] MEDS ORDERED: ENOXAPARIN 40 MG/0.4 ML SYRINGE SUBQ SCH (09:00)
[2017-07-13] MEDS: SODIUM CHLORIDE FLUSH 0.9% 10 ML SYRINGE IVP SCH ×3 (09:01→17:38)
[2017-07-13] MEDS: ACETAMINOPHEN 325 MG TABLET PO PRN (09:01)
[2017-07-13] MEDS: POLYETHYLENE GLYCOL 3350 17 GM PACKET PO SCH (09:22)
[2017-07-13 09:28] LABS: MEAN RETIC VALUE 100.8; RED BLOOD COUNT 2.45 10^6/uL (4.20-5.40)
[2017-07-13 09:43] LABS: % IRON SATURATION 11 % (20-50); IRON 15 ug/dL (28-170); TOTAL IRON BINDING CAPACITY 136 ug/dL (250-450); TRANSFERRIN 97 mg/dL (192-382)
[2017-07-13 09:48] LABS: FERRITIN 789.4 ng/mL (11.0-306.8)
[2017-07-13] MEDS: cefTRIAXone 1 GM in SODIUM CHLORIDE 0.9% MINIBAG 100 ML IV SCH (12:49)
--- NOTE | 2017-07-13 13:26 | PROVIDER PROGRESS NOTE ---
Subjective - Prog Note Date Prog Note Date: 07/13/17 - Subjective Pt reports feeling: Improved Subjective: she state she feel better today and feel thirsty. Pt can speak slowly. She denies chest pain, shortness of breath. No fever, and chill. 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 Current Medications - Current Medications Current Medications: Active Medications Acetaminophen (Tylenol) 650 mg PO Q4HR PRN PRN Reason: Pain 1 to 4 Last Admin: 07/13/17 09:01 Dose: 650 mg Ceftriaxone Sodium 1 gm/ (Sodium Chloride) 100 mls @ 200 mls/hr IV DAILY [facility] Last Infusion: 07/13/17 13:19 Dose: Infused Calcium Gluconate 1,000 mg/ (Sodium Chloride) 60 mls @ 60 mls/hr IV ONCE ONE Stop: 07/13/17 16:36 Sodium Chloride (Normal Saline 0.9%) 1,000 mls @ 83.333 mls/hr IV .Q12H [facility] Non-Formulary Medication (Cholecalciferol (Vitamin D3) [Vitamin D3]) 5,000 unit PO DAILY [facility] Non-Formulary Medication (Lamotrigine [Lamotrigine]) 200 mg PO BID [facility] Non-Formulary Medication (Multivitamin [Multi-Vitamin Daily]) 2 each PO DAILY [facility] Non-Formulary Medication (Simvastatin [Zocor]) 5 mg PO QPM [facility] [id number] Ethyl Esters (Lovaza) 1 gm PO DAILY [facility] Ondansetron HCl (Zofran Inj) 4 mg IVP Q6HR PRN PRN Reason: Nausea / Vomiting Ondansetron HCl (Zofran Odt) 4 mg TL Q4HR PRN PRN Reason: Nausea / Vomiting Polyethylene Glycol (Miralax) 17 gm PO DAILY [facility] Last Admin: 07/13/17 09:22 Dose: 17 gm Prochlorperazine Edisylate (Compazine Inj) 10 mg IVP Q4HR PRN PRN Reason: Nausea / Vomiting Promethazine HCl (Phenergan Supp) 25 mg [place] TID PRN PRN Reason: Nausea / Vomiting Rivaroxaban (Xarelto) 15 mg PO 1700 [facility] Sevelamer HCl (Renagel) 800 mg PO TIDWM [facility] Sodium Chloride (Normal Saline Flush 0.9%) 10 ml IVP PRN PRN PRN Reason: NEEDED PER PROVIDER ORDERS Sodium Chloride (Normal Saline Flush 0.9%) 10 ml IVP Q8HR [facility] Last Admin: 07/13/17 14:23 Dose: 10 ml Cholecalciferol (Vitamin D3) [Vitamin D] 5,000 unit PO DAILY 11/20/12 Lamotrigine 200 mg PO BID 11/20/12 Multivitamin [Multi-Vitamin Daily] 2 each PO DAILY 11/20/12 Simvastatin [Zocor] 5 mg PO QPM 11/20/12 Rivaroxaban [Xarelto] 15 mg PO 1700 07/02/17 [place]-3 Acid Ethyl Esters [Lovaza] 1 gm PO DAILY 07/12/17 Objective - Vital Signs/Intake & Output Vital Signs: Vital Signs x48h Temp Pulse Pulse Resp BP BP Pulse Ox 07/13/17 12:43 36.7 C 93 28 H 100/52 L 07/13/17 09:27 37.5 C 106 H 24 108/58 L 07/13/17 09:11 37.0 C 106 H 26 H 114/56 L 07/13/17 09:05 37.0 C 106 H 26 H 114/56 L 100 07/13/17 08:09 38.2 C H 105 H 24 105/74 96 07/13/17 05:52 36.9 C 98 20 100/61 100 Intake & Output: Intake & Output 07/10/17 07/11/17 07/12/17 07/13/17 23:59 23:59 23:59 23:59 Intake Total 1400 2715 Output Total 750 600 Balance 650 2115 - Objective General Appearance: positive: No acute distress, Alert. negative: Lethargic Eyes Bilateral: positive: Normal inspection, PERRL, No lid inflammation, Conjunctivae nml ENT: positive: ENT inspection nml, Pharynx nml, No signs of dehydration. negative: Purulent nasal drainage, Pharyngeal erythema, Oral lesions Neck: positive: Nml inspection, Thyroid nml, No JVD, Trachea midline. negative : Thyromegaly, Lymphadenopathy (R), Lymphadenopathy (L), Stiff neck, Carotid bruit, Swelling/bruising, Tracheal deviation Respiratory: positive: Chest non-tender, No respiratory distress, Breath sounds nml. negative: Wheezes, Rales, Rhonchi Cardiovascular: positive: Regular rate & rhythm, No murmur, No gallop. negative : Irregularly irregular, Extrasystoles, Tachycardia, Bradycardia, Systolic murmur, Diastolic murmur Peripheral Pulses: 2+ Radial (R), 2+ Radial (L), 2+ Dorsalis pedis (R), 2+ Dorsalis pedis (L) Abdomen: positive: Non-tender, No organomegaly, Nml bowel sounds, No distention. negative: Tenderness, Guarding, Rebound Back: positive: Nml inspection. negative: CVA tenderness (R), CVA tenderness (L ) Skin: positive: Color nml, No rash, Warm, Dry. negative: Cyanosis, Diaphoresis , Pallor, Skin rash Extremities: positive: Non-tender. negative: Calf tenderness, Joint swelling, Laureano's sign/cords Neurologic/Psychiatric: positive: Mood/affect nml, Slurred/abnml speech. negative: Sensory loss, Facial droop - Lab Results Fish Bones: 07/13/17 06:41 07/13/17 04:45 Other Labs: Lab Results x24hrs 07/13/17 07/13/17 07/13/17 Range/Units 06:41 06:41 04:45 WBC (4.8-10.8) x10^3/uL RBC 2.45 L (4.20-5.40) 10^6/uL Hgb 6.7 L* (12.0-16.0) g/dL Hct 21.4 L (37.0-47.0) % MCV (81.0-99.0) fL MCH (27.0-31.0) pg MCHC (32.0-36.0) g/dL RDW (12.0-15.0) % Plt Count (130-450) 10^3/uL MPV (7.9-10.8) fL Reticulocyte % (Auto) 4.60 H (0.5-2.3) % Neut # Lymph # [place] # Eos # Baso # Absolute Nucleated RBC Total Counted Band Neuts % (Manual) (0 - 10) % Reactive Lymphs % (Man) % Abnorm Lymph % (Manual) % Metamyelocytes % ( - 0) % Nucleated RBC % Neutrophils # (Manual) (1.5-6.6) 10^3/uL Lymphocytes # (Manual) (1.5-3.5) 10^3/uL Monocytes # (Manual) (0.0-1.0) 10^3/uL Eosinophils # (Manual) (0-0.7) 10^3/uL Basophils # (Manual) (0-0.1) 10^3/uL Nucleated RBCs % Differential Comment Manual Slide Review Platelet Estimate (NORMAL) Platelet Morphology (NORMAL) RBC Morph Micro Appear (NORMAL) Absolute Retic 0.113 H (0.020-0.110) 10^6/uL PT (9.9-12.6) secs INR (0.8-1.2) APTT (24.9-33.3) secs Sodium (135-145) mmol/L Potassium (3.5-5.0) mmol/L Chloride (101-111) mmol/L Carbon Dioxide (21-32) mmol/L Anion Gap (6-13) BUN (6-20) mg/dL Creatinine (0.4-1.0) mg/dL Estimated GFR (MDRD) (>89) Glucose (70-100) mg/dL Lactic Acid (0.5-2.2) mmol/L Calcium (8.5-10.3) mg/dL Phosphorus (2.5-4.6) mg/dL Magnesium (1.7-2.8) mg/dL Iron (28-170) ug/dL TIBC (250-450) ug/dL % Saturation (20-50) % Transferrin (192-382) mg/dL Ferritin 789.4 H (11.0-306.8) ng/mL Total Bilirubin (0.2-1.0) mg/dL AST (10-42) IU/L ALT (10-60) IU/L Alkaline Phosphatase (42-121) IU/L Total Creatine Kinase (22-269) IU/L Total Protein (6.7-8.2) g/dL Albumin (3.2-5.5) g/dL Globulin (2.1-4.2) g/dL Albumin/Globulin Ratio (1.0-2.2) Vitamin B12 1513 H (180-914) pg/mL 07/13/17 07/13/17 07/13/17 Range/Units 04:45 04:45 04:45 WBC (4.8-10.8) x10^3/uL RBC (4.20-5.40) 10^6/uL Hgb (12.0-16.0) g/dL Hct (37.0-47.0) % MCV (81.0-99.0) fL MCH (27.0-31.0) pg MCHC (32.0-36.0) g/dL RDW (12.0-15.0) % Plt Count (130-450) 10^3/uL MPV (7.9-10.8) fL Reticulocyte % (Auto) (0.5-2.3) % Neut # Lymph # [place] # Eos # Baso # Absolute Nucleated RBC Total Counted Band Neuts % (Manual) (0 - 10) % Reactive Lymphs % (Man) % Abnorm Lymph % (Manual) % Metamyelocytes % ( - 0) % Nucleated RBC % Neutrophils # (Manual) (1.5-6.6) 10^3/uL Lymphocytes # (Manual) (1.5-3.5) 10^3/uL Monocytes # (Manual) (0.0-1.0) 10^3/uL Eosinophils # (Manual) (0-0.7) 10^3/uL Basophils # (Manual) (0-0.1) 10^3/uL Nucleated RBCs % Differential Comment Manual Slide Review Platelet Estimate (NORMAL) Platelet Morphology (NORMAL) RBC Morph Micro Appear (NORMAL) Absolute Retic (0.020-0.110) 10^6/uL PT (9.9-12.6) secs INR (0.8-1.2) APTT (24.9-33.3) secs Sodium 136 (135-145) mmol/L Potassium 4.3 (3.5-5.0) mmol/L Chloride 106 (101-111) mmol/L Carbon Dioxide 21 (21-32) mmol/L Anion Gap 9.0 (6-13) BUN 36 H (6-20) mg/dL Creatinine 2.2 H (0.4-1.0) mg/dL Estimated GFR (MDRD) 23 L (>89) Glucose 117 H (70-100) mg/dL Lactic Acid 0.7 (0.5-2.2) mmol/L Calcium 6.7 L (8.5-10.3) mg/dL Phosphorus 5.4 H (2.5-4.6) mg/dL Magnesium 1.9 (1.7-2.8) mg/dL Iron 15 L (28-170) ug/dL TIBC 136 L (250-450) ug/dL % Saturation 11 L (20-50) % Transferrin 97 L (192-382) mg/dL Ferritin (11.0-306.8) ng/mL Total Bilirubin 0.6 (0.2-1.0) mg/dL AST 31 (10-42) IU/L ALT 23 (10-60) IU/L Alkaline Phosphatase 48 (42-121) IU/L Total Creatine Kinase (22-269) IU/L Total Protein 4.6 L (6.7-8.2) g/dL Albumin 2.4 L (3.2-5.5) g/dL Globulin 2.2 (2.1-4.2) g/dL Albumin/Globulin Ratio 1.1 (1.0-2.2) Vitamin B12 (180-914) pg/mL 07/13/17 07/13/17 07/12/17 Range/Units 04:45 04:45 18:05 WBC 7.6 (4.8-10.8) x10^3/uL RBC 2.43 L (4.20-5.40) 10^6/uL Hgb 6.6 L* (12.0-16.0) g/dL Hct 21.1 L (37.0-47.0) % MCV 86.9 (81.0-99.0) fL MCH 27.2 (27.0-31.0) pg MCHC 31.3 L (32.0-36.0) g/dL RDW 19.2 H (12.0-15.0) % Plt Count 49 L (130-450) 10^3/uL MPV 10.2 (7.9-10.8) fL Reticulocyte % (Auto) (0.5-2.3) % Neut # Not Reportable Lymph # Not Reportable [place] # Not Reportable Eos # Not Reportable Baso # Not Reportable Absolute Nucleated RBC Not Reportable Total Counted 100 Band Neuts % (Manual) 6 (0 - 10) % Reactive Lymphs % (Man) 6 % Abnorm Lymph % (Manual) 3 % Metamyelocytes % 4 H ( - 0) % Nucleated RBC % Not Reportable Neutrophils # (Manual) 4.3 (1.5-6.6) 10^3/uL Lymphocytes # (Manual) 2.4 (1.5-3.5) 10^3/uL Monocytes # (Manual) 0.6 (0.0-1.0) 10^3/uL Eosinophils # (Manual) 0.0 (0-0.7) 10^3/uL Basophils # (Manual) 0.0 (0-0.1) 10^3/uL Nucleated RBCs 3 % Differential Comment MANUAL DIFFERENTIAL Manual Slide Review Indicated Platelet Estimate DECREASED (<130,000) (NORMAL) Platelet Morphology 1+ LARGE PLATELETS (NORMAL) RBC Morph Micro Appear 2+ BASO STIPPLING (NORMAL) Absolute Retic (0.020-0.110) 10^6/uL PT 19.8 H (9.9-12.6) secs INR 1.8 H (0.8-1.2) APTT 26.1 (24.9-33.3) secs Sodium (135-145) mmol/L Potassium (3.5-5.0) mmol/L Chloride (101-111) mmol/L Carbon Dioxide (21-32) mmol/L Anion Gap (6-13) BUN (6-20) mg/dL Creatinine (0.4-1.0) mg/dL Estimated GFR (MDRD) (>89) Glucose (70-100) mg/dL Lactic Acid (0.5-2.2) mmol/L Calcium (8.5-10.3) mg/dL Phosphorus (2.5-4.6) mg/dL Magnesium (1.7-2.8) mg/dL Iron (28-170) ug/dL TIBC (250-450) ug/dL % Saturation (20-50) % Transferrin (192-382) mg/dL Ferritin (11.0-306.8) ng/mL Total Bilirubin (0.2-1.0) mg/dL AST (10-42) IU/L ALT (10-60) IU/L Alkaline Phosphatase (42-121) IU/L Total Creatine Kinase 1100 H* (22-269) IU/L Total Protein (6.7-8.2) g/dL Albumin (3.2-5.5) g/dL Globulin (2.1-4.2) g/dL Albumin/Globulin Ratio (1.0-2.2) Vitamin B12 (180-914) pg/mL 07/12/17 07/12/17 Range/Units 18:05 18:05 WBC (4.8-10.8) x10^3/uL RBC (4.20-5.40) 10^6/uL Hgb (12.0-16.0) g/dL Hct (37.0-47.0) % MCV (81.0-99.0) fL MCH (27.0-31.0) pg MCHC (32.0-36.0) g/dL RDW (12.0-15.0) % Plt Count (130-450) 10^3/uL MPV (7.9-10.8) fL Reticulocyte % (Auto) (0.5-2.3) % Neut # Lymph # [place] # Eos # Baso # Absolute Nucleated RBC Total Counted Band Neuts % (Manual) (0 - 10) % Reactive Lymphs % (Man) % Abnorm Lymph % (Manual) % Metamyelocytes % ( - 0) % Nucleated RBC % Neutrophils # (Manual) (1.5-6.6) 10^3/uL Lymphocytes # (Manual) (1.5-3.5) 10^3/uL Monocytes # (Manual) (0.0-1.0) 10^3/uL Eosinophils # (Manual) (0-0.7) 10^3/uL Basophils # (Manual) (0-0.1) 10^3/uL Nucleated RBCs % Differential Comment Manual Slide Review Platelet Estimate (NORMAL) Platelet Morphology (NORMAL) RBC Morph Micro Appear (NORMAL) Absolute Retic (0.020-0.110) 10^6/uL PT (9.9-12.6) secs INR (0.8-1.2) APTT (24.9-33.3) secs Sodium 134 L (135-145) mmol/L Potassium 4.6 (3.5-5.0) mmol/L Chloride 102 (101-111) mmol/L Carbon Dioxide 18 L (21-32) mmol/L Anion Gap 14.0 H (6-13) BUN 37 H (6-20) mg/dL Creatinine 2.5 H (0.4-1.0) mg/dL Estimated GFR (MDRD) 20 L (>89) Glucose 129 H (70-100) mg/dL Lactic Acid 1.8 (0.5-2.2) mmol/L Calcium 7.3 L (8.5-10.3) mg/dL Phosphorus (2.5-4.6) mg/dL Magnesium (1.7-2.8) mg/dL Iron (28-170) ug/dL TIBC (250-450) ug/dL % Saturation (20-50) % Transferrin (192-382) mg/dL Ferritin (11.0-306.8) ng/mL Total Bilirubin (0.2-1.0) mg/dL AST (10-42) IU/L ALT (10-60) IU/L Alkaline Phosphatase (42-121) IU/L Total Creatine Kinase (22-269) IU/L Total Protein (6.7-8.2) g/dL Albumin (3.2-5.5) g/dL Globulin (2.1-4.2) g/dL Albumin/Globulin Ratio (1.0-2.2) Vitamin B12 (180-914) pg/mL Assessment/Plan - Problem List (1) Fever and chills Impression: no fever, chill after treated with Rocephin today, and WBC is down to normal from 17.6 continue antibiotic add IVF, since pt has dehydration sign, state she feel thirsty and acute on chronic CKD (2) Nausea and vomiting Impression: pt state she feel better, continue antiemesis PRN IVF with NS daily lab, and vital monitor (3) Urinary tract infection Impression: UA reveals UTI Rocephin IV follow up UA culture, and blood culture Qualifiers: Urinary tract infection type: acute cystitis Hematuria presence: with hematuria Qualified Code(s): N30.01 - Acute cystitis with hematuria (4) History of myeloproliferative disorder Impression: pt is following MAC and oncologist care, request frequent blood transfusion will transfusion of RBC as clinic needed daily lab, vital monitor (5) Anemia Impression: it may derive from pt's myeloproliferative disorder and CKD because pt is frequent blood transfusion, hold Ferrous sulfate to prevention of overload iron blood transfusion two unit, since pt's HGB is dropped to 6.7 (6) Cerebrovascular accident (CVA) with involvement of right side of body Impression: pt is with right side paralysis from CVA at 17 yrs ago continue home meds Xarelto continue support,encourage ambulation (7) History of nephrectomy, unilateral Impression: with elevated BUN and creatinine, elevated CK level keep hydration, IVF avoid nephrotixin agents daily lab, and vital monitor (8) Hyperphosphatemia Impression: elevated phosphate level, it appear from CKD add Sevelamer daily lab monitor check Calcium (9) Hypocalcemia Impression: pt is with CKD and nephrectomy, and elevated phosphate level Calcium gluconate IV add Sevelamer daily lab monitor
[2017-07-13] MEDS ORDERED: SODIUM CHLORIDE 0.9% 1,000 ML IV SCH (16:00)
[2017-07-13] MEDS ORDERED: CALCIUM GLUCONATE 1,000 MG in SODIUM CHLORIDE 0.9% 50 ML IV ONE (17:00)
[2017-07-13] MEDS: SEVELAMER 800 MG TABLET PO SCH (17:38)
[2017-07-13] MEDS: RIVAROXABAN 15 MG TABLET PO SCH (17:38)
[2017-07-13] MEDS: lamoTRIgine 100 MG TABLET PO SCH (21:05)
[2017-07-13] MEDS: ATORVASTATIN 10 MG TABLET PO SCH (21:06)
[2017-07-14] MEDS: SODIUM CHLORIDE 0.9% 1,000 ML IV SCH ×4 (05:51→20:00)
[2017-07-14] MEDS: SODIUM CHLORIDE FLUSH 0.9% 10 ML SYRINGE IVP SCH ×3 (05:52→20:18)
[2017-07-14] MEDS: ACETAMINOPHEN 325 MG TABLET PO PRN (05:52)
[2017-07-14] MEDS: SEVELAMER 800 MG TABLET PO SCH ×3 (08:51→17:11)
[2017-07-14] MEDS: MULTIVITAMIN TABLET PO SCH (08:51)
[2017-07-14] MEDS: CHOLECALCIFEROL 5,000 UNIT CAPSULE PO SCH (08:51)
[2017-07-14] MEDS: OMEGA-3 ACID ETHYL ESTERS 1 GM CAPSULE PO SCH (08:51)
[2017-07-14] MEDS: lamoTRIgine 100 MG TABLET PO SCH ×2 (08:51→20:22)
[2017-07-14] MEDS: cefTRIAXone 1 GM in SODIUM CHLORIDE 0.9% MINIBAG 100 ML IV SCH (08:51)
[2017-07-14] MEDS: POLYETHYLENE GLYCOL 3350 17 GM PACKET PO SCH (08:52)
[2017-07-14 08:55] LABS: BASOPHILS % (AUTO) 0.4 %; EOSINOPHILS % (AUTO) 0.1 %; HGB - HEMOGLOBIN 8.3 g/dL (12.0-16.0); LYMPHOCYTES % (AUTO) 24.9 %; MEAN CORPUSCULAR HEMOGLOBIN 27.8 pg (27.0-31.0); MEAN CORPUSCULAR HGB CONC 32.7 g/dL (32.0-36.0); MEAN CORPUSCULAR VOLUME 84.9 fL (81.0-99.0); MEAN PLATELET VOLUME 11.4 fL (7.9-10.8); MONOCYTES % (AUTO) 19.4 %; NEUTROPHILS % (AUTO) 55.2 %; PLT - PLATELET COUNT 47 10^3/uL (130-450); RED BLOOD COUNT 2.98 10^6/uL (4.20-5.40); RED CELL DISTRIBUTION WIDTH 18.6 % (12.0-15.0); WHITE BLOOD COUNT 7.6 x10^3/uL (4.8-10.8)
[2017-07-14 09:03] LABS: ALBUMIN 2.1 g/dL (3.2-5.5); BILIRUBIN,TOTAL 0.6 mg/dL (0.2-1.0); CALCIUM 6.9 mg/dL (8.5-10.3); CREATININE 1.7 mg/dL (0.4-1.0); TOTAL PROTEIN 4.3 g/dL (6.7-8.2)
[2017-07-14 09:48] LABS: ABNORMAL LYMPHS % (MANUAL) 3 %; BAND NEUTROPHILS % (MANUAL) 8 %; LYMPHOCYTES # (MANUAL) 2.1 10^3/uL (1.5-3.5); LYMPHOCYTES % (MANUAL) 24 %; METAMYELOCYTES % (MANUAL) 3 %; MONOCYTES # (MANUAL) 0.7 10^3/uL (0.0-1.0); NEUTROPHILS # (MANUAL) 4.6 10^3/uL (1.5-6.6); NEUTROPHILS % (MANUAL) 53 %
[2017-07-14 09:52] LABS: PLATELET ESTIMATE, MANUAL DECREASED (<130,000) (NORMAL); PLATELET MORPHOLOGY NORMAL APPEARANCE (NORMAL)
[2017-07-14 09:53] LABS: DIFFERENTIAL COMMENT MANUAL DIFFERENTIAL
--- NOTE | 2017-07-14 13:31 | PROVIDER PROGRESS NOTE ---
Subjective - Prog Note Date Prog Note Date: 07/14/17 - Subjective Pt reports feeling: Improved Subjective: pt report she feel some better but feels dry mouth. No chest pain, cough. Current Medications - Current Medications Current Medications: Active Medications Acetaminophen (Tylenol) 650 mg PO Q4HR PRN PRN Reason: Pain 1 to 4 Last Admin: 07/14/17 05:52 Dose: 650 mg Atorvastatin Calcium (Lipitor) 5 mg PO QPM [facility] Last Admin: 07/13/17 21:06 Dose: 5 mg Cholecalciferol (Vitamin D3) 5,000 unit PO DAILY [facility] Last Admin: 07/14/17 08:51 Dose: 5,000 unit Ceftriaxone Sodium 1 gm/ (Sodium Chloride) 100 mls @ 200 mls/hr IV DAILY [facility] Last Infusion: 07/14/17 09:30 Dose: Infused Sodium Chloride (Normal Saline 0.9%) 1,000 mls @ 125 mls/hr IV .Q8H [facility] Calcium Gluconate 1,000 mg/ (Sodium Chloride) 60 mls @ 60 mls/hr IV ONCE ONE Stop: 07/14/17 14:59 Lamotrigine (Lamictal) 200 mg PO BID [facility] Last Admin: 07/14/17 08:51 Dose: 200 mg Multivitamins (Theragran) 1 tab PO DAILYWM [facility] Last Admin: 07/14/17 08:51 Dose: 1 tab [id number] Ethyl Esters (Lovaza) 1 gm PO DAILY [facility] Last Admin: 07/14/17 08:51 Dose: 1 gm Ondansetron HCl (Zofran Inj) 4 mg IVP Q6HR PRN PRN Reason: Nausea / Vomiting Ondansetron HCl (Zofran Odt) 4 mg TL Q4HR PRN PRN Reason: Nausea / Vomiting Polyethylene Glycol (Miralax) 17 gm PO DAILY [facility] Last Admin: 07/14/17 08:52 Dose: Not Given Prochlorperazine Edisylate (Compazine Inj) 10 mg IVP Q4HR PRN PRN Reason: Nausea / Vomiting Promethazine HCl (Phenergan Supp) 25 mg [place] TID PRN PRN Reason: Nausea / Vomiting Rivaroxaban (Xarelto) 15 mg PO 1700 [facility] Last Admin: 07/13/17 17:38 Dose: 15 mg Sevelamer HCl (Renagel) 800 mg PO TIDWM [facility] Last Admin: 07/14/17 12:26 Dose: 800 mg Sodium Chloride (Normal Saline Flush 0.9%) 10 ml IVP PRN PRN PRN Reason: NEEDED PER PROVIDER ORDERS Sodium Chloride (Normal Saline Flush 0.9%) 10 ml IVP Q8HR [facility] Last Admin: 07/14/17 13:11 Dose: Not Given Cholecalciferol (Vitamin D3) [Vitamin D] 5,000 unit PO DAILY 11/20/12 Lamotrigine 200 mg PO BID 11/20/12 Multivitamin [Multi-Vitamin Daily] 2 each PO DAILY 11/20/12 Simvastatin [Zocor] 5 mg PO QPM 11/20/12 Rivaroxaban [Xarelto] 15 mg PO 1700 07/02/17 [place]-3 Acid Ethyl Esters [Lovaza] 1 gm PO DAILY 07/12/17 Objective - Vital Signs/Intake & Output Reviewed Vital Signs: Yes Vital Signs: Vital Signs x48h Temp Pulse Resp BP Pulse Ox 07/14/17 12:50 36.4 C L 91 18 99/55 L 96 07/14/17 09:00 36.6 C 92 16 88/52 L 97 Intake & Output: Intake & Output 07/11/17 07/12/17 07/13/17 07/14/17 23:59 23:59 23:59 23:59 Intake Total 1400 4925 2020 Output Total 750 1850 600 Balance 650 3075 1420 - Objective General Appearance: positive: No acute distress, Alert. negative: Lethargic Eyes Bilateral: positive: Normal inspection, PERRL, No lid inflammation, Conjunctivae nml ENT: positive: ENT inspection nml, Pharynx nml, No signs of dehydration. negative: Purulent nasal drainage, Pharyngeal erythema, Oral lesions Neck: positive: Nml inspection, Thyroid nml, No JVD, Trachea midline. negative : Thyromegaly, Lymphadenopathy (R), Lymphadenopathy (L), Stiff neck, Carotid bruit, Swelling/bruising, Tracheal deviation Respiratory: positive: Chest non-tender, No respiratory distress, Breath sounds nml. negative: Wheezes, Rales, Rhonchi Cardiovascular: positive: Regular rate & rhythm, No murmur, No gallop. negative : Irregularly irregular, Extrasystoles, Tachycardia, Bradycardia, Systolic murmur, Diastolic murmur Peripheral Pulses: 2+ Radial (R), 2+ Radial (L), 2+ Dorsalis pedis (R), 2+ Dorsalis pedis (L) Abdomen: positive: Non-tender, No organomegaly, Nml bowel sounds, No distention. negative: Tenderness, Guarding, Rebound Back: positive: Nml inspection. negative: CVA tenderness (R), CVA tenderness (L ) Skin: positive: Color nml, No rash, Warm, Dry. negative: Cyanosis, Diaphoresis , Pallor Extremities: positive: Non-tender, Nml appearance. negative: Calf tenderness, Joint swelling, Laureano's sign/cords Neurologic/Psychiatric: positive: Oriented x3, Sensation nml. negative: Sensory loss, Facial droop, Depressed mood/affect - Lab Results Fish Bones: 07/14/17 08:34 07/14/17 08:34 Other Labs: Lab Results x24hrs 07/14/17 07/14/17 07/14/17 Range/Units 08:34 08:34 05:30 WBC 7.6 (4.8-10.8) x10^3/uL RBC 2.98 L (4.20-5.40) 10^6/uL Hgb 8.3 L (12.0-16.0) g/dL Hct 25.3 L (37.0-47.0) % MCV 84.9 (81.0-99.0) fL MCH 27.8 (27.0-31.0) pg MCHC 32.7 (32.0-36.0) g/dL RDW 18.6 H (12.0-15.0) % Plt Count 47 L (130-450) 10^3/uL MPV 11.4 H (7.9-10.8) fL Neut # Not Reportable Lymph # Not Reportable [place] # Not Reportable Eos # Not Reportable Baso # Not Reportable Absolute Nucleated RBC Not Reportable Total Counted 100 Band Neuts % (Manual) 8 (0 - 10) % Abnorm Lymph % (Manual) 3 % Metamyelocytes % 3 H ( - 0) % Nucleated RBC % Not Reportable Neutrophils # (Manual) 4.6 (1.5-6.6) 10^3/uL Lymphocytes # (Manual) 2.1 (1.5-3.5) 10^3/uL Monocytes # (Manual) 0.7 (0.0-1.0) 10^3/uL Eosinophils # (Manual) 0.0 (0-0.7) 10^3/uL Basophils # (Manual) 0.0 (0-0.1) 10^3/uL Differential Comment MANUAL DIFFERENTIAL Manual Slide Review Indicated Platelet Estimate DECREASED (<130,000) (NORMAL) Platelet Morphology NORMAL APPEARANCE (NORMAL) RBC Morph Micro Appear 1+ OVALOCYTES (NORMAL) Sodium 132 L (135-145) mmol/L Potassium 3.9 (3.5-5.0) mmol/L Chloride 103 (101-111) mmol/L Carbon Dioxide 19 L (21-32) mmol/L Anion Gap 10.0 (6-13) BUN 27 H (6-20) mg/dL Creatinine 1.7 H (0.4-1.0) mg/dL Estimated GFR (MDRD) 31 L (>89) Glucose 117 H (70-100) mg/dL POC Whole Bld Glucose 121 H (70 - 100) mg/dL Calcium 6.9 L (8.5-10.3) mg/dL Phosphorus (2.5-4.6) mg/dL Total Bilirubin 0.6 (0.2-1.0) mg/dL AST 21 (10-42) IU/L ALT 22 (10-60) IU/L Alkaline Phosphatase 59 (42-121) IU/L Total Creatine Kinase 395 H (22-269) IU/L Total Protein 4.3 L (6.7-8.2) g/dL Albumin 2.1 L (3.2-5.5) g/dL Globulin 2.2 (2.1-4.2) g/dL Albumin/Globulin Ratio 1.0 (1.0-2.2) 07/14/17 Range/Units 04:35 WBC (4.8-10.8) x10^3/uL RBC (4.20-5.40) 10^6/uL Hgb (12.0-16.0) g/dL Hct (37.0-47.0) % MCV (81.0-99.0) fL MCH (27.0-31.0) pg MCHC (32.0-36.0) g/dL RDW (12.0-15.0) % Plt Count (130-450) 10^3/uL MPV (7.9-10.8) fL Neut # Lymph # [place] # Eos # Baso # Absolute Nucleated RBC Total Counted Band Neuts % (Manual) (0 - 10) % Abnorm Lymph % (Manual) % Metamyelocytes % ( - 0) % Nucleated RBC % Neutrophils # (Manual) (1.5-6.6) 10^3/uL Lymphocytes # (Manual) (1.5-3.5) 10^3/uL Monocytes # (Manual) (0.0-1.0) 10^3/uL Eosinophils # (Manual) (0-0.7) 10^3/uL Basophils # (Manual) (0-0.1) 10^3/uL Differential Comment Manual Slide Review Platelet Estimate (NORMAL) Platelet Morphology (NORMAL) RBC Morph Micro Appear (NORMAL) Sodium (135-145) mmol/L Potassium (3.5-5.0) mmol/L Chloride (101-111) mmol/L Carbon Dioxide (21-32) mmol/L Anion Gap (6-13) BUN (6-20) mg/dL Creatinine (0.4-1.0) mg/dL Estimated GFR (MDRD) (>89) Glucose (70-100) mg/dL POC Whole Bld Glucose (70 - 100) mg/dL Calcium (8.5-10.3) mg/dL Phosphorus 3.3 (2.5-4.6) mg/dL Total Bilirubin (0.2-1.0) mg/dL AST (10-42) IU/L ALT (10-60) IU/L Alkaline Phosphatase (42-121) IU/L Total Creatine Kinase (22-269) IU/L Total Protein (6.7-8.2) g/dL Albumin (3.2-5.5) g/dL Globulin (2.1-4.2) g/dL Albumin/Globulin Ratio (1.0-2.2) Assessment/Plan - Problem List (1) Fever and chills Impression: (1) Fever and chills Impression: no bacterial growth in blood culture preliminary, UA culture reveals positive for Ecoli and sensitive to Rocephin No fever but slight elevated temperature on last night continue the antibiotics IVF no fever, chill after treated with Rocephin today, and WBC is down to normal from 17.6 continue antibiotic add IVF, since pt has dehydration sign, state she feel thirsty and acute on chronic CKD (2) Nausea and vomiting Impression: resolved pt state she feel better, continue antiemesis PRN IVF with NS daily lab, and vital monitor (3) Urinary tract infection Impression: positive in UA culture sensitive to Rocephin continue to Rocephin UA reveals UTI Rocephin IV follow up UA culture, and blood culture (4) History of myeloproliferative disorder Impression: stable pt is following MAC and oncologist care, request frequent blood transfusion will transfusion of RBC as clinic needed daily lab, vital monitor (5) Anemia Impression: after transfusion of blood, Now HGB is 8.3 continue daily lab, vital monitor it may derive from pt's myeloproliferative disorder and CKD because pt is frequent blood transfusion, hold Ferrous sulfate to prevention of overload iron blood transfusion two unit, since pt's HGB is dropped to 6.7 (6) Cerebrovascular accident (CVA) with involvement of right side of body Impression: pt denies focal neurological deficits pt is with right side paralysis from CVA at 17 yrs ago continue home meds Xarelto continue support,encourage ambulation (7) History of nephrectomy, unilateral Impression: improved in creatinine and BUN CKP is down to 400 from 1100 continue IVF avoid nephrotixin agents with elevated BUN and creatinine, elevated CK level keep hydration, IVF avoid nephrotixin agents daily lab, and vital monitor (8) Hyperphosphatemia Impression: resolved continue check phosphate level if continue normal in phosphate level, and improvement on kidney function, will consider d/c Sevelamer elevated phosphate level, it appear from CKD add Sevelamer daily lab monitor check Calcium (9) Hypocalcemia Impression: improved once calcium gluconate continue lab monitor pt is with CKD and nephrectomy, and elevated phosphate level Calcium gluconate IV add Sevelamer daily lab monitor (3) Urinary tract infection Qualifiers: Urinary tract infection type: acute cystitis Hematuria presence: with hematuria Qualified Code(s): N30.01 - Acute cystitis with hematuria
[2017-07-14] MEDS ORDERED: CALCIUM GLUCONATE 1,000 MG in SODIUM CHLORIDE 0.9% 50 ML IV ONE (14:00)
[2017-07-14] MEDS: RIVAROXABAN 15 MG TABLET PO SCH (17:11)
[2017-07-14] MEDS: ATORVASTATIN 10 MG TABLET PO SCH (20:21)
[2017-07-14] MEDS: ONDANSETRON 4 MG/2 ML VIAL IVP PRN (21:51)
[2017-07-15] MEDS: SODIUM CHLORIDE 0.9% 1,000 ML IV SCH ×2 (00:49→23:21)
[2017-07-15 05:15] LABS: ALBUMIN 2.1 g/dL (3.2-5.5); BASOPHILS % (AUTO) 2.3 %; BILIRUBIN,TOTAL 0.5 mg/dL (0.2-1.0); CREATININE 1.4 mg/dL (0.4-1.0); EOSINOPHILS % (AUTO) 0.4 %; HGB - HEMOGLOBIN 8.3 g/dL (12.0-16.0); LYMPHOCYTES % (AUTO) 35.1 %; MEAN CORPUSCULAR HEMOGLOBIN 27.7 pg (27.0-31.0); MEAN CORPUSCULAR HGB CONC 32.5 g/dL (32.0-36.0); MONOCYTES % (AUTO) 17.7 %; NEUTROPHILS % (AUTO) 44.5 %; PHOSPHORUS 3.2 mg/dL (2.5-4.6); PLT - PLATELET COUNT 51 10^3/uL (130-450); RED BLOOD COUNT 2.99 10^6/uL (4.20-5.40); RED CELL DISTRIBUTION WIDTH 18.6 % (12.0-15.0); TOTAL PROTEIN 4.3 g/dL (6.7-8.2); WHITE BLOOD COUNT 6.8 x10^3/uL (4.8-10.8)
[2017-07-15 05:52] LABS: ABNORMAL LYMPHS % (MANUAL) 6 %; BAND NEUTROPHILS % (MANUAL) 5 %; LYMPHOCYTES # (MANUAL) 3.3 10^3/uL (1.5-3.5); LYMPHOCYTES % (MANUAL) 43 %; MONOCYTES # (MANUAL) 0.1 10^3/uL (0.0-1.0); NEUTROPHILS # (MANUAL) 3.1 10^3/uL (1.5-6.6); NEUTROPHILS % (MANUAL) 41 %
[2017-07-15 05:53] LABS: DIFFERENTIAL COMMENT MANUAL DIFFERENTIAL; PLATELET ESTIMATE, MANUAL DECREASED (<130,000) (NORMAL); PLATELET MORPHOLOGY 1+ LARGE PLATELETS (NORMAL)
[2017-07-15] MEDS ORDERED: SODIUM CHLORIDE 0.9% 1,000 ML IV SCH (07:39)
[2017-07-15] MEDS: cefTRIAXone 1 GM in SODIUM CHLORIDE 0.9% MINIBAG 100 ML IV SCH (08:33)
[2017-07-15] MEDS: POLYETHYLENE GLYCOL 3350 17 GM PACKET PO SCH (08:35)
[2017-07-15] MEDS: CHOLECALCIFEROL 5,000 UNIT CAPSULE PO SCH (08:36)
[2017-07-15] MEDS: lamoTRIgine 100 MG TABLET PO SCH ×2 (08:36→20:35)
[2017-07-15] MEDS: OMEGA-3 ACID ETHYL ESTERS 1 GM CAPSULE PO SCH (08:36)
[2017-07-15] MEDS: MULTIVITAMIN TABLET PO SCH (08:36)
--- NOTE | 2017-07-15 14:28 | PROVIDER PROGRESS NOTE ---
Subjective - Prog Note Date Prog Note Date: 07/15/17 - Subjective Pt reports feeling: No change Subjective: pt report one episode of nausea and vomiting on last night. But also she state it is her chronic condition. Pt report she has a good appetite. No fever,chill, chest pain, shortness of breath reported. Current Medications - Current Medications Current Medications: Active Medications Acetaminophen (Tylenol) 650 mg PO Q4HR PRN PRN Reason: Pain 1 to 4 Last Admin: 07/14/17 05:52 Dose: 650 mg Atorvastatin Calcium (Lipitor) 5 mg PO QPM [facility] Last Admin: 07/14/17 20:21 Dose: 5 mg Cholecalciferol (Vitamin D3) 5,000 unit PO DAILY [facility] Last Admin: 07/15/17 08:36 Dose: 5,000 unit Ceftriaxone Sodium 1 gm/ (Sodium Chloride) 100 mls @ 200 mls/hr IV DAILY [facility] Last Admin: 07/15/17 08:33 Dose: 200 mls/hr Sodium Chloride (Normal Saline 0.9%) 1,000 mls @ 100 mls/hr IV .Q10H [facility] Lamotrigine (Lamictal) 200 mg PO BID [facility] Last Admin: 07/15/17 08:36 Dose: 200 mg Multivitamins (Theragran) 1 tab PO DAILYWM [facility] Last Admin: 07/15/17 08:36 Dose: 1 tab [id number] Ethyl Esters (Lovaza) 1 gm PO DAILY [facility] Last Admin: 07/15/17 08:36 Dose: 1 gm Ondansetron HCl (Zofran Inj) 4 mg IVP Q6HR PRN PRN Reason: Nausea / Vomiting Last Admin: 07/14/17 21:51 Dose: 4 mg Ondansetron HCl (Zofran Odt) 4 mg TL Q4HR PRN PRN Reason: Nausea / Vomiting Polyethylene Glycol (Miralax) 17 gm PO DAILY [facility] Last Admin: 07/15/17 08:35 Dose: Not Given Prochlorperazine Edisylate (Compazine Inj) 10 mg IVP Q4HR PRN PRN Reason: Nausea / Vomiting Promethazine HCl (Phenergan Supp) 25 mg VA TID PRN PRN Reason: Nausea / Vomiting Rivaroxaban (Xarelto) 15 mg PO 1700 [facility] Last Admin: 07/14/17 17:11 Dose: 15 mg Sodium Chloride (Normal Saline Flush 0.9%) 10 ml IVP PRN PRN PRN Reason: NEEDED PER PROVIDER ORDERS Sodium Chloride (Normal Saline Flush 0.9%) 10 ml IVP Q8HR [facility] Last Admin: 07/14/17 20:18 Dose: Not Given Cholecalciferol (Vitamin D3) [Vitamin D] 5,000 unit PO DAILY 11/20/12 Lamotrigine 200 mg PO BID 11/20/12 Multivitamin [Multi-Vitamin Daily] 2 each PO DAILY 11/20/12 Simvastatin [Zocor] 5 mg PO QPM 11/20/12 Rivaroxaban [Xarelto] 15 mg PO 1700 07/02/17 [place]-3 Acid Ethyl Esters [Lovaza] 1 gm PO DAILY 07/12/17 Objective - Vital Signs/Intake & Output Reviewed Vital Signs: Yes Vital Signs: Vital Signs x48h Temp Pulse Resp BP Pulse Ox 07/15/17 14:20 37.1 C 88 18 102/51 L 99 07/15/17 09:18 37.0 C 94 18 117/61 97 Intake & Output: Intake & Output 07/12/17 07/13/17 07/14/17 07/15/17 23:59 23:59 23:59 23:59 Intake Total 1400 4925 4350 600 Output Total 750 1850 2650 1050 Balance 650 3075 1700 -450 - Objective General Appearance: positive: No acute distress, Alert. negative: Lethargic Eyes Bilateral: positive: Normal inspection, PERRL, No lid inflammation, Conjunctivae nml ENT: positive: ENT inspection nml, Pharynx nml, No signs of dehydration. negative: Purulent nasal drainage, Pharyngeal erythema, Oral lesions, Dry mucous membranes Neck: positive: Nml inspection, Thyroid nml, No JVD, Trachea midline. negative : Thyromegaly, Lymphadenopathy (R), Lymphadenopathy (L), Stiff neck, Carotid bruit, Swelling/bruising, Tracheal deviation Respiratory: positive: Chest non-tender, No respiratory distress, Breath sounds nml. negative: Wheezes, Rales, Rhonchi Cardiovascular: positive: Regular rate & rhythm, No murmur, No gallop. negative : Irregularly irregular, Extrasystoles, Tachycardia, Bradycardia, Systolic murmur, Diastolic murmur Peripheral Pulses: 2+ Radial (R), 2+ Radial (L), 2+ Dorsalis pedis (R), 2+ Dorsalis pedis (L) Abdomen: positive: Non-tender, Nml bowel sounds, Splenomegaly. negative: Tenderness, Guarding, Rebound Back: positive: Nml inspection. negative: CVA tenderness (R), CVA tenderness (L ) Skin: positive: Color nml, No rash, Warm, Dry. negative: Cyanosis, Diaphoresis , Pallor Extremities: positive: Non-tender, Nml appearance. negative: Calf tenderness, Joint swelling, Laureano's sign/cords Neurologic/Psychiatric: positive: Oriented x3, Mood/affect nml, Slurred/abnml speech. negative: Sensory loss, Facial droop, Depressed mood/affect - Lab Results Fish Bones: 07/15/17 04:27 07/15/17 04:27 Other Labs: Lab Results x24hrs 07/15/17 07/15/17 07/15/17 Range/Units 04:27 04:27 04:27 WBC 6.8 (4.8-10.8) x10^3/uL RBC 2.99 L (4.20-5.40) 10^6/uL Hgb 8.3 L (12.0-16.0) g/dL Hct 25.4 L (37.0-47.0) % MCV 85.0 (81.0-99.0) fL MCH 27.7 (27.0-31.0) pg MCHC 32.5 (32.0-36.0) g/dL RDW 18.6 H (12.0-15.0) % Plt Count 51 L (130-450) 10^3/uL MPV 11.0 H (7.9-10.8) fL Neut # Not Reportable Lymph # Not Reportable [place] # Not Reportable Eos # Not Reportable Baso # Not Reportable Absolute Nucleated RBC Not Reportable Total Counted 100 Band Neuts % (Manual) 5 (0 - 10) % Abnorm Lymph % (Manual) 6 % Blast Cells % 4 H* % Nucleated RBC % Not Reportable Neutrophils # (Manual) 3.1 (1.5-6.6) 10^3/uL Lymphocytes # (Manual) 3.3 (1.5-3.5) 10^3/uL Monocytes # (Manual) 0.1 (0.0-1.0) 10^3/uL Eosinophils # (Manual) 0.0 (0-0.7) 10^3/uL Basophils # (Manual) 0.0 (0-0.1) 10^3/uL Nucleated RBCs 1 % Differential Comment MANUAL DIFFERENTIAL Platelet Estimate DECREASED (<130,000) (NORMAL) Platelet Morphology 1+ LARGE PLATELETS (NORMAL) RBC Morph Micro Appear 1+ BASO STIPPLING (NORMAL) Sodium 134 L (135-145) mmol/L Potassium 4.2 (3.5-5.0) mmol/L Chloride 108 (101-111) mmol/L Carbon Dioxide 19 L (21-32) mmol/L Anion Gap 7.0 (6-13) BUN 25 H (6-20) mg/dL Creatinine 1.4 H (0.4-1.0) mg/dL Estimated GFR (MDRD) 39 L (>89) Glucose 103 H (70-100) mg/dL Calcium 7.0 L (8.5-10.3) mg/dL Phosphorus 3.2 (2.5-4.6) mg/dL Total Bilirubin 0.5 (0.2-1.0) mg/dL AST 16 (10-42) IU/L ALT 20 (10-60) IU/L Alkaline Phosphatase 56 (42-121) IU/L Total Creatine Kinase 157 (22-269) IU/L Total Protein 4.3 L (6.7-8.2) g/dL Albumin 2.1 L (3.2-5.5) g/dL Globulin 2.3 (2.1-4.2) g/dL Albumin/Globulin Ratio 1.0 (1.0-2.2) Assessment/Plan - Problem List (1) Fever and chills Impression: (1) Fever and chills Impression: no fever or chill, but slight elevated temperature. pt is with hx of myeoproliferation disease WBC continue to be normal continue current treatment no bacterial growth in blood culture preliminary, UA culture reveals positive for Ecoli and sensitive to Rocephin No fever but slight elevated temperature on last night continue the antibiotics IVF no fever, chill after treated with Rocephin today, and WBC is down to normal from 17.6 continue antibiotic add IVF, since pt has dehydration sign, state she feel thirsty and acute on chronic CKD (2) Nausea and vomiting Impression: one episode on last night, pt has hx of nausea and vomiting US of abdomen, will follow up antiemesis PRN daily lab test, vital monitor resolved pt state she feel better, continue antiemesis PRN IVF with NS daily lab, and vital monitor (3) Urinary tract infection Impression: Ecoli positive in UA culture sensitive to Rocephin continue to Rocephin UA reveals UTI Rocephin IV follow up UA culture, and blood culture (4) History of myeloproliferative disorder Impression: pt is following MAC and oncologist care, request frequent blood transfusion will transfusion of RBC as clinic needed daily lab, vital monitor (5) Anemia Impression: stable, no ferrous iron because of pt's frequency of blood transfusion of blood, cause of iron overload. 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 continue home meds Xarelto continue support,encourage ambulation (7) History of nephrectomy, unilateral Impression: continue to improve renal function continue mild IVF hydration improved in creatinine and BUN CKP is down to 400 from 1100 continue IVF avoid nephrotixin agents with elevated BUN and creatinine, elevated CK level keep hydration, IVF avoid nephrotixin agents daily lab, and vital monitor (8) Hyperphosphatemia Impression: resolved continue check phosphate level if continue normal in phosphate level, and improvement on kidney function, will consider d/c Sevelamer elevated phosphate level, it appear from CKD add Sevelamer daily lab monitor check Calcium (9) Hypocalcemia Impression: improved once calcium gluconate continue lab monitor (3) Urinary tract infection Qualifiers: Urinary tract infection type: acute cystitis Hematuria presence: with hematuria Qualified Code(s): N30.01 - Acute cystitis with hematuria
[2017-07-15] MEDS: SODIUM CHLORIDE FLUSH 0.9% 10 ML SYRINGE IVP SCH ×3 (16:01→20:35)
[2017-07-15] MEDS: RIVAROXABAN 15 MG TABLET PO SCH (19:02)
[2017-07-15] MEDS: ATORVASTATIN 10 MG TABLET PO SCH (20:35)
[2017-07-16] MEDS: ONDANSETRON 4 MG/2 ML VIAL IVP PRN (02:14)
[2017-07-16 04:56] LABS: BASOPHILS % (AUTO) 1.5 %; EOSINOPHILS % (AUTO) 0.3 %; HGB - HEMOGLOBIN 8.9 g/dL (12.0-16.0); LYMPHOCYTES % (AUTO) 30.2 %; MEAN CORPUSCULAR HEMOGLOBIN 27.1 pg (27.0-31.0); MEAN CORPUSCULAR HGB CONC 31.1 g/dL (32.0-36.0); MEAN CORPUSCULAR VOLUME 87.4 fL (81.0-99.0); MEAN PLATELET VOLUME 10.8 fL (7.9-10.8); PLT - PLATELET COUNT 64 10^3/uL (130-450); RED BLOOD COUNT 3.29 10^6/uL (4.20-5.40); RED CELL DISTRIBUTION WIDTH 19.2 % (12.0-15.0); WHITE BLOOD COUNT 7.9 x10^3/uL (4.8-10.8)
[2017-07-16 05:10] LABS: ALBUMIN 2.1 g/dL (3.2-5.5); ALBUMIN/GLOBULIN RATIO 0.9 (1.0-2.2); BILIRUBIN,TOTAL 0.5 mg/dL (0.2-1.0); CALCIUM 7.4 mg/dL (8.5-10.3); CREATININE 1.3 mg/dL (0.4-1.0); CRP - C-REACTIVE PROTEIN 6.9 mg/dL (0-1.0); PHOSPHORUS 3.1 mg/dL (2.5-4.6); TOTAL PROTEIN 4.5 g/dL (6.7-8.2)
[2017-07-16] MEDS: SODIUM CHLORIDE 0.9% 1,000 ML IV SCH ×2 (05:20→10:30)
[2017-07-16] MEDS: SODIUM CHLORIDE FLUSH 0.9% 10 ML SYRINGE IVP SCH (05:20)
[2017-07-16 05:34] LABS: ABNORMAL LYMPHS % (MANUAL) 3 %; BAND NEUTROPHILS % (MANUAL) 3 %; LYMPHOCYTES # (MANUAL) 3.7 10^3/uL (1.5-3.5); LYMPHOCYTES % (MANUAL) 22 %; METAMYELOCYTES % (MANUAL) 1 %; NEUTROPHILS # (MANUAL) 3.1 10^3/uL (1.5-6.6); NEUTROPHILS % (MANUAL) 36 %
[2017-07-16 05:36] LABS: DIFFERENTIAL COMMENT MANUAL DIFFERENTIAL; PLATELET ESTIMATE, MANUAL DECREASED (<130,000) (NORMAL)
[2017-07-16] MEDS: MULTIVITAMIN TABLET PO SCH (09:01)
[2017-07-16] MEDS: lamoTRIgine 100 MG TABLET PO SCH (09:01)
[2017-07-16] MEDS: OMEGA-3 ACID ETHYL ESTERS 1 GM CAPSULE PO SCH (09:01)
[2017-07-16] MEDS: CHOLECALCIFEROL 5,000 UNIT CAPSULE PO SCH (09:01)
[2017-07-16] MEDS: cefTRIAXone 1 GM in SODIUM CHLORIDE 0.9% MINIBAG 100 ML IV SCH (09:02)
[2017-07-16] MEDS: POLYETHYLENE GLYCOL 3350 17 GM PACKET PO SCH (09:02)
--- NOTE | 2017-07-16 09:55 | Ultrasound Preliminary Report ---
Exam: US ABDOMEN COMPLETE IMPRESSION: 1. No cholelithiasis or evidence of cholecystitis. The pancreas is poorly visualized. 2. Marked splenomegaly as before. Small splenic infarctions. 3. Mild hepatomegaly. Bidirectional flow in the portal vein. [facility] SITE ID: [id number]
--- NOTE | 2017-07-16 09:56 | Ultrasound Report ---
EXAM: ABDOMEN ULTRASOUND EXAM DATE: 07/16/2017 09:12 AM. CLINICAL HISTORY: Epigastric pain and tenderness. COMPARISON: Renal ultrasound 02/08/2017. CT abdomen pelvis 05/13/2015. TECHNIQUE: Real-time scanning was performed with static images obtained. FINDINGS: Suboptimal evaluation secondary to right-sided contusion limiting acoustic window. Liver: Mildly enlarged. No focal hepatic lesion demonstrated. 21 cm. Main portal vein flow: Bidirecti onal. The portal vein and splenic vein are dilated, similar to prior CT. Gallbladder: There is gallbladder sludge but no cholelithiasis. No sonographic Jensen sign. Wall thic kening to 7 mm is likely secondary to hepatic disease. Biliary System: Common bile duct measures 7 mm. No intrahepatic or extrahepatic ductal dilatation. Pancreas: Not well visualized secondary to poor acoustic window. Kidneys: Right: Surgically absent. No sonographically apparent abnormality in the right renal fossa. Left: 10 cm longitudinally. No hydronephrosis or nephrolithiasis. Spleen: Greater than 28 cm. Markedly enlarged. Two 3-5 cm splenic infarctions are noted. Aorta and Inferior Vena Cava: Unremarkable. Other: None. IMPRESSION: 1. No cholelithiasis or evidence of cholecystitis. The pancreas is poorly visualized. 2. Marked splenomegaly as before. Small splenic infarctions. 3. Mild hepatomegaly. Bidirectional flow in the portal vein. [facility] Referring Provider Line: [phone] SITE ID: [id number]
--- NOTE | 2017-07-16 11:14 | Discharge Plan ---
Discharge Plan Disposition: 01 Home, Self Care Condition: Stable Prescriptions: Nitrofurantoin [Macrobid] 100 mg PO BID #10 capsule Diet: Regular Activity Restrictions: Additional Comments (may avoid energetics activities or sports) Shower Restrictions: No Assistance Devices: Walker Weight Bearing: Full Weight Instruction Topics: Nitrofurantoin tablets or capsules, UTI, Transfusion Blood Ch Additional Instructions or Follow Up instructions: May follow up PCP in 3-4 days, follow up Body Straight[employer] in two weeks, follow up oncologist as the schedule. No Smoking: If you smoke, Please STOP! Call for help. Follow-up with: Alayna Malik PA-C [Primary Care Provider] -
[2017-07-16 11:26] VITALS: BP 103/58
--- NOTE | 2017-07-16 11:57 | DISCHARGE SUMMARY ---
Discharge Summary Discharge Date: 07/16/17 Discharging Provider: MIX Primary Care Provider: Alayna Arias Condition at Discharge: Stable Discharge Disposition: 01 Home, Self Care Discharge Facility Name: home - DIAGNOSES Admission Diagnoses: (1) Fever and chills (2) Nausea and vomiting (3) Urinary tract infection (4) History of myeloproliferative disorder (5) Anemia (6) Cerebrovascular accident (CVA) with involvement of right side of body (7) History of nephrectomy, unilateral (8) Hyperphosphatemia (9) Hypocalcemia (10) hx of splenomegaly Discharge Diagnoses with Status of Each Condition: (1) Fever and chills resolved (2) Nausea and vomiting resolved (3) Urinary tract infection controlled, WBC is normal, continue to finish the antibiotics course (4) History of myeloproliferative disorder stable, continue managing by her oncologist (5) Anemia after transfusion, her HGB is stable (6) Cerebrovascular accident (CVA) with involvement of right side of body hx, stable, no new onset of focal neurological deficit (7) History of nephrectomy, unilateral stable (8) Hyperphosphatemia resolved (9) Hypocalcemia improved. (10) hx of splenomegaly educate pt avoid energetic activities or sports - HPI History of Present Illness: please refer from Portia's HPI as the follow: Shannan Fitzgerald is a 57-year old white female with a past medical history of CVA 17 years ago with right sided residual, altered mental status, seizures, polycythemia vera and myelofibrosis, expressive aphasia, status post nephrectomy in March 2017 for a benign kidney mass, enlarged spleen, and chronic nausea with vomiting. She is well-known to the [facility] clinic for frequent blood transfusions. She arrived to the ED with a primary complaint of abdominal pain, nausea, hematemesis, anorexia, fever, chills, weight loss and fatigue. She is suspected to have recently been prescribed Xarelto and was in her usual state of health up until about one week ago when she "felt very warm to the touch", so her put the portable pulse oximeter on her finger which displayed an oxygen saturation of 87% and heart rate readings in the 120' s. He also checked a temp and noted a fever of 102, and 104 axillary. He gave her tylenol, and by the next morning she was improved. Then on Tuesday (3 days ago), he again took her temp and it was 102 axillary and accompanied with fever , chills, and fatigue. This morning the patient had hematemesis and describes it as deep purple, rust colored and said it was small to moderate in size as it got on the bed, and on her chest. Both career development specialist, Gita and , Jesus were present for the admission interview and exam. We will plan to admit patient to inpatient for UTI and anemia and contact the [facility] clinic, keeping in mind DNR status and life expectancy. - HOSPITAL COURSE Hospital Course: pt was admitted for UTI and anemia. UTI was treated with antibiotics according to sensitive study. Pt's WBC is down to the normal, no fever, chill or dysuria or hematuria reported. Anemia was transfused by two blood units, and remain stable HGB. Pt was d/c to home, resume home meds, prescribed Nitrofuratoin for UTI continuing course treatment. - ALLERGIES Allergies/Adverse Reactions: Allergies Allergy/AdvReac Type Severity Reaction Status Date / Time No Known Drug Allergies Allergy Verified 07/12/17 06:28 - MEDICATIONS Home Medications: Ambulatory Orders Medication Instructions Recorded Confirmed Cholecalciferol (Vitamin D3) 5,000 unit PO DAILY 11/20/12 07/12/17 [Vitamin D3] Lamotrigine 200 mg PO BID 11/20/12 07/12/17 Multivitamin [Multi-Vitamin Daily] 2 each PO DAILY 11/20/12 07/12/17 Simvastatin [Zocor] 5 mg PO QPM 11/20/12 07/12/17 raNITIdine HCl [Ranitidine HCl] 150 mg PO BID #60 capsule 05/25/17 07/12/17 Rivaroxaban [Xarelto] 15 mg PO 1700 07/02/17 07/12/17 [place]-3 Acid Ethyl Esters [Lovaza] 1 gm PO DAILY 07/12/17 07/12/17 Nitrofurantoin [Macrobid] 100 mg PO BID #10 capsule 07/16/17 - PHYSICAL EXAM AT DISCHARGE General Appearance: positive: No acute distress, Alert. negative: Lethargic Eyes Bilateral: positive: Normal inspection, PERRL, No lid inflammation, Conjunctivae nml ENT: positive: ENT inspection nml, Pharynx nml, No signs of dehydration. negative: Purulent nasal drainage, Pharyngeal erythema, Oral lesions, Dry mucous membranes Neck: positive: Nml inspection, Thyroid nml, No JVD, Trachea midline. negative : Thyromegaly, Lymphadenopathy (R), Lymphadenopathy (L), Stiff neck, Carotid bruit, Swelling/bruising, Tracheal deviation Respiratory: positive: Chest non-tender, No respiratory distress, Breath sounds nml. negative: Wheezes, Rales, Rhonchi Cardiovascular: positive: Regular rate & rhythm, No murmur, No gallop. negative : Irregularly irregular, Extrasystoles, Tachycardia, Bradycardia, Systolic murmur, Diastolic murmur Peripheral Pulses: positive: 2+ Abdomen: positive: Non-tender, Nml bowel sounds, Splenomegaly. negative: Tenderness, Guarding, Rebound, Abnml bowel sounds Back: positive: Nml inspection. negative: CVA tenderness (R), CVA tenderness (L ) Skin: positive: Color nml, No rash, Warm, Dry. negative: Cyanosis, Diaphoresis , Pallor Extremities: positive: Non-tender, Nml appearance. negative: Calf tenderness, Joint swelling, Laureano's sign/cords Neurologic/Psychiatric: positive: Oriented x3, Mood/affect nml. negative: Sensory loss, Facial droop, Slurred/abnml speech, Depressed mood/affect - LABS Result Diagrams: 07/16/17 04:35 07/16/17 04:35 - FOLLOW UP Follow Up: May follow up PCP in 3-4 days, follow up Agriculture Internship in two weeks, follow up oncologist as the schedule. resume home medication regime. Prescribe Nitrofuratoin for continuing of UTI treatment. Pt is advised to avoid energetic activities or sports due to marked splenomegaly. - TIME SPENT Time Spent in Discharge (Minutes): 50
== END 2017-07-16 14:33 | disposition home or self-care (01) | DRG 690 ==
LOC: ED 06:12 → MS3 11:22
PROVIDERS: ADMIT Nurse Practitioner; ATTEND Nurse Practitioner Gerontology
PROC: 30233N1 Transfusion of Nonautologous Red Blood Cells into Peripheral Vein, Percutaneous Approach (ICD-10-PCS; principal; 2017-07-12)
DX: N30.01 Acute cystitis with hematuria (principal); C94.6 Myelodysplastic disease, not elsewhere classified; I69.351 Hemiplegia and hemiparesis following cerebral infarction affecting right dominant side; N17.9 Acute kidney failure, unspecified; K92.0 Hematemesis; E86.0 Dehydration; I95.9 Hypotension, unspecified; E83.39 Other disorders of phosphorus metabolism; E83.51 Hypocalcemia; N18.9 Chronic kidney disease, unspecified; B96.20 Unspecified Escherichia coli [E. coli] as the cause of diseases classified elsewhere; I69.320 Aphasia following cerebral infarction; I69.398 Other sequelae of cerebral infarction; H54.61 Unqualified visual loss, right eye, normal vision left eye; H91.91 Unspecified hearing loss, right ear; I73.9 Peripheral vascular disease, unspecified; K21.9 Gastro-esophageal reflux disease without esophagitis; Z66 Do not resuscitate; Z79.01 Long term (current) use of anticoagulants; Z90.5 Acquired absence of kidney; Z86.018 Personal history of other benign neoplasm; Z86.711 Personal history of pulmonary embolism; Z86.718 Personal history of other venous thrombosis and embolism; Z91.81 History of falling
CPT/HCPCS: 36415; 71045; 76700; 80048; 80053; 80175; 81001; 81003; 82550; 82607; 82728; 83540; 83605; 83615; 83690; 83735; 84100; 84466; 85014; 85018; 85025; 85044; 85610; 85651; 85730; 86140; 86850; 86900; 86901; 86922; 87040; 87086; 87275; 87276; 93005; 93306; 96361; 96374; 96375; 99284; 99285

== ENCOUNTER 2017-07-19 20:54 | Outpatient (CLI) | payer OTHER ==
--- NOTE | 2017-07-19 21:07 | CONSULTATION NOTE ---
Palliative Care Follow Up - Referral Referring Provider: Nicki López; PCP Alayna Malik Time of Visit: 07/19/2017 18:35 - 19:35 Referral setting: Home (Seen in home setting due to taxing and considerable effort required to leave the home due to weakness and fatigue post- hospitalization and significant R side hemiparesis s/p distant CVA.) - Information Sources Records reviewed: Previous records reviewed History/Review of Systems obtained from: Patient, Family, Friend Exam limitations: Clinical condition (significant expressive aphasia s/p CVA in 1999) - History of Present Illness Update Brief HPI Update: This is a daniel 57-year-old woan with polycythemia vera and myelofibrosis, with a limited life expectancy of 30-40 months. She also has R side hemiparesis and significant expressive aphasia secondary to CVA in . She had a nephrectomy in March 2017 for a benign kidney mass. She was hospitalized last week for 5 days for UTI, [id number] CKD, dehydration, and anemia, discharged on 07/16/2017 on nitrofurantoin 100mg twice daily for 5 days. She received two blood transfusions during her hospitalization, Hgb increasing from 6.7 to 8.3. She has been very weak and sleeping 16-18 hours since her discharge, and her friend Gita, who is helping provide caregiving, reports this is the first "good" day since her discharge 3 days ago. She has lower extremity weakness and requires support now with ambulation. She has no complaint of pain, N/V, sleeping. Her notes she has been losing weight, from prior to her hospitalization. He does not have a record of weights, but her clothing is looser on her. She does complain of edema in lower right extremity, which is improving with compression and elevation. She is following up with her PCP at the end of this week. She has been referred for consultation for gastroenterology follow up due to hepatomegaly and splenomegaly. The patient and her are undecided at this time whether to follow up with . They cancelled the most recent [facility] [place] blood transfusion since she was transfused twice during her hospitalization. They don' t currently have a follow up transfusion appointment scheduled. Social History - Living Situation Living arrangement: At home Living Situation: With spouse/s.o., With caregiver(s) (Her niece is staying with her to provide care giving, and her friend Gita is also providing care giving and support.) Medications/Allergies - Medications Home Medications: Ambulatory Orders Medication Instructions Recorded Confirmed Cholecalciferol (Vitamin D3) 5,000 unit PO DAILY 11/20/12 07/12/17 [Vitamin D3] Lamotrigine 200 mg PO BID 11/20/12 07/12/17 Multivitamin [Multi-Vitamin Daily] 2 each PO DAILY 11/20/12 07/12/17 Simvastatin [Zocor] 5 mg PO QPM 11/20/12 07/12/17 raNITIdine HCl [Ranitidine HCl] 150 mg PO BID #60 capsule 05/25/17 07/12/17 Rivaroxaban [Xarelto] 15 mg PO 1700 07/02/17 07/12/17 [place]-3 Acid Ethyl Esters [Lovaza] 1 gm PO DAILY 07/12/17 07/12/17 Nitrofurantoin [Macrobid] 100 mg PO BID #10 capsule 07/16/17 - Allergies Allergies/Adverse Reactions: Allergies Allergy/AdvReac Type Severity Reaction Status Date / Time No Known Drug Allergies Allergy Verified 07/12/17 06:28 Review of Systems - Constitutional Constitutional: reports: Fatigue, Weakness, Poor appetite, Night sweats (chronic ), Weight loss (Clothing is looser. Left arm bicep circumference is 28 c.) - Ears, Nose & Throat Ears, Nose & Throat: reports: Dry mouth (worse in hospitalization; she was given IV hydration and it has since improved) - Cardiovascular Cardiovascular: denies: Chest pain - Respiratory Respiratory: denies: SOB at rest, SOB with exertion - Gastrointestinal Gastrointestinal: reports: Abdominal distention (splenomegaly; hepatomegaly), Other (loose stools) - Genitourinary Genitourinary: denies: Dysuria, Incontinence - Musculoskeletal Musculoskeletal: reports: Limited range of motion (R side hemiparesis), Muscle weakness (bilateral lower extremity), Assistive devices (cane; wheelchair) - Neurological Neurological: reports: General weakness, Other (R side hemiparesis; expressive aphasia) - Hematologic/Lymphatic Hematologic/Lymphatic: reports: Anemia, Bruising (chronic anticoagulants) Physical Exam - Vital Signs Temperature: 97.1 F Pulse Rate: 93 O2 Saturation: 93 Blood Pressure: 118/68 - Physical Exam General Appearance: positive: No acute distress, Alert Eyes Bilateral: positive: Normal inspection ENT: positive: No signs of dehydration. negative: Oral lesions, Dry mucous membranes Neck: positive: Thyroid nml, Trachea midline Cardiovascular: positive: Regular rate & rhythm, No murmur Respiratory: positive: No respiratory distress, Breath sounds nml Abdomen: positive: Hepatomegaly, Distended (splenomegaly) Skin: positive: Bruising (L arm) Extremities: positive: Pedal edema (Right lower extremity edema r/t hemiparesis) Neurologic/Psychiatric: positive: Oriented x3, Motor nml, Sensation nml, Mood/ affect nml Palliative Care - POLST Patient has POLST: Yes POLST Status: DNR, Selective Treatment Pain: No pain Tiredness/Fatigue: Severe (7-10) Nausea: None Anorexia: Mild (1-3), Weight loss Constipation: No Performance Status: Current level of functioning: Increased sleeping, less ambulatory, requires assistance with ambulation with cane, or uses wheelchair. - Palliative Care Discussion: Patient and her spouse will follow up with her PCP this Tuesday and will make a decision whether to consult gastroenterology after consulting with her PCP. Her spouse, Denys, is skeptical about following up because "what difference will it make?" The patient received two transfusions in hospital, and currently they are waiting until the PCP appointment before deciding on the next steps. The patient recognizes her condition is declining, and her desire is to remain at home. When asked if she wants further treatment her response is difficult to determine due to the aphasia, but it's a rolling of the eyes and throwing up the hand. When questioned further, she does state she is open to further hospitalizations if needed, such as the one she just completed. One area of concern is that the patient now requires more care giving help. Her niece is staying with them for a time to help out while Denys is at work. Gita is also spending time there as home care aide; she has already had several years of remunerated care giving experience in the past. Denys has also made arrangements for other people to also provide care giving assistance. I left the updated list of agencies that provide care giving services on [facility]. We discussed hospice and its services, and whether it currently aligns with the patient's and the family's and goals, and they concluded at this time Hospice is not in alignment with the goals. I will follow up next week, likely with Gita since Denys's work schedule is very tight. He is under extreme pressure at work, with long hours of mandatory overtime, and with his own health issues. On 08/01/17 he has an out-patient cardiac procedure at [facility] for his a-fib. Denys was able to provide the document showing he is DPOA for his , and I have entered this into the Palliative Care file. Impression and Recommendations - Palliative Care Impression: This is a daniel 57-year-old woman with polycythemia vera and myelofibrosis, with a limited life expectancy and recent decline in condition, including hospitalization for UTI and [id number] CKD. Her spouse is also facing his own significant health challenges, and has a cardiac procedure scheduled for mid -July. The patient has a follow up consulation with her PCP and is considering whether to follow up with gastroenterology. At this time Hospice is not congruent with her care goals, and palliative care will continue to monitor and provide consultation. Recommendations/Counseling Done: UTI: Treated in hospital and discharged with Macrobid twice daily for 5 days. Hepatomegaly: Following up with PCP later this week. Also recommended to follow up with gastroenterology, patient and spouse are currently undecided whether to follow up. Chronic splenomegaly: Follow up with PCP, also recommended follow-up with [facility]. Polycythemia vera: On anticoagulant, rivaroroxaban. Currently off Jakafi. Receives regular transfusions, most recently twice during her hospitalization from 07/12/17 - 07/16/17. Currently no transfusion scheduled at [facility] [place]. Advanced care planning: Her condition is declining and she would meet the medical criteria for Hospice. She is still willing to transfer to hospital if needed; Hospice does not meet her goals of care at the current time. Family is organizing care giving support with friends and family and will research agencies. Follow up call next week. Time Spent: 60 minutes were spent with more than 50% of the time spent on counseling, education, and coordination of care around advanced care planning. Provided anticipatory guidance.
== END 2017-07-19 20:55 | disposition home or self-care (01) ==
LOC: PC 20:54
PROVIDERS: ATTEND Nurse Practitioner
DX: Z51.5 Encounter for palliative care (principal); N39.0 Urinary tract infection, site not specified; R16.2 Hepatomegaly with splenomegaly, not elsewhere classified; D45 Polycythemia vera; I69.320 Aphasia following cerebral infarction; I69.351 Hemiplegia and hemiparesis following cerebral infarction affecting right dominant side; D75.81 Myelofibrosis; Z90.5 Acquired absence of kidney; Z86.018 Personal history of other benign neoplasm; N18.9 Chronic kidney disease, unspecified; Z79.01 Long term (current) use of anticoagulants; Z66 Do not resuscitate; Z79.899 Other long term (current) drug therapy
CPT/HCPCS: 99350